=== PATIENT | female | born 1990 | race Caucasian/White ===

== ENCOUNTER → 2018-12-29 15:17 | Outpatient (CLI) | payer MEDICAID, SELFPAY ==
[2018-12-29 16:13] LABS: Basophils # 0.1 K/mm3 (0-0.2); Basophils % 0.9 % (0.1-2.0); Eosinophils # 0.2 K/mm3 (0.0-0.4); Eosinophils % 2.6 % (0.1-12.0); Hematocrit 39.5 % (37.0-47.0); Hemoglobin 12.2 g/dL (12.2-16.2); Lymphocytes # 2.1 K/mm3 (0.7-4.5); Lymphocytes % 31.3 % (10-50); Mean Corpuscular Volume 80.7 fl (81-99); Mean Platelet Volume 8.3 fl (7.4-10.4); Monocytes # 0.4 K/mm3 (0.1-1.0); Monocytes % 5.6 % (1.7-9.3); Neutrophils # 4.1 K/mm3 (1.8-7.8); Neutrophils % 59.5 % (37.0-80.0); Platelet Count 447 K/mm3 (142-424); Red Blood Count 4.89 M/mm3 (4.20-5.40); Red Cell Distribution Width 14.7 % (11.5-17.5); White Blood Count 6.8 K/mm3 (4.8-10.8)
[2018-12-29 17:22] LABS: Alanine Aminotransferase 28 U/L (12-78); Albumin Level 4.7 gm/dL (3.4-5.0); Albumin/Globulin Ratio 1.2 (1.1-1.8); Alkaline Phosphatase 72 U/L (46-116); Anion Gap 16.2 mEq/L (5-15); Aspartate Amino Transferase 22 U/L (15-37); Bilirubin,Total 0.3 mg/dL (0.2-1.0); Blood Urea Nitrogen 6 mg/dL (7-18); Calcium 9.4 mg/dL (8.5-10.1); Carbon Dioxide 28 mmol/L (21.0-32.0); Chloride 100 mmol/L (98-107); Chol/HDL Ratio 5.2 (1-3.5); Cholesterol 248 mg/dL (140-200); Creatinine,Serum 0.73 mg/dL (0.55-1.02); Estimated Glomerular Filt Rate 95 ml/min (>60); GFR (African American) 115 ML/MIN (>60); Globulin 3.8 gm/dl (1.3-3.2); Glucose 102 mg/dL (74-106); HDL Cholesterol 48 mg/dL (29-89); LDL Cholesterol 166 mg/dL (0-130); Potassium 4.2 mmoL/L (3.5-5.1); Sodium 140 mmol/L (136-145); T4 (Thyroxine) 7.8 ug/dl (4.7-13.3); Thyroid Stimulating Hormone 5.52 uIU/ml (0.358-3.740); Total Protein,Serum 8.5 gm/dL (6.4-8.2); Triglycerides 169 mg/dL (30-200); VLDL Cholesterol 34 mg/dL (0-40)
[2018-12-31 11:45] LABS: Vitamin D 25 Hydroxy 23.4 ng/mL (30.0-100.0)
== END ==
PROVIDERS: Visit Provider Physician Assistant
DX: E03.9 Hypothyroidism, unspecified (principal); E55.9 Vitamin D deficiency, unspecified
CPT/HCPCS: 80053; 80061; 82652; 84436; 84443; 85025

== ENCOUNTER → 2020-01-24 14:44 | Outpatient (CLI) | payer MEDICAID, SELFPAY ==
[2020-01-24 14:56] LABS: Basophils # 0.1 K/mm3 (0-0.2); Basophils % 1.2 % (0.1-2.0); Eosinophils # 0.2 K/mm3 (0.0-0.4); Eosinophils % 2.3 % (0.1-12.0); Hematocrit 40.3 % (37.0-47.0); Hemoglobin 12.4 g/dL (12.2-16.2); Lymphocytes # 2.5 K/mm3 (0.7-4.5); Lymphocytes % 35.3 % (10-50); Mean Corpuscular HGB Conc 30.8 g/dL (31.8-35.4); Mean Corpuscular Hemoglobin 25.1 pg (27.0-31.2); Mean Corpuscular Volume 81.8 fl (81-99); Mean Platelet Volume 8.2 fl (7.4-10.4); Monocytes # 0.4 K/mm3 (0.1-1.0); Monocytes % 5.9 % (1.7-9.3); Neutrophils # 3.9 K/mm3 (1.8-7.8); Neutrophils % 55.3 % (37.0-80.0); Platelet Count 397 K/mm3 (142-424); Red Blood Count 4.93 M/mm3 (4.20-5.40); Red Cell Distribution Width 13.6 % (11.5-17.5)
[2020-01-24 14:57] LABS: Chloride 101 mmol/L (98-107); Sodium 141 mmol/L (136-145)
[2020-01-24 14:59] LABS: Alanine Aminotransferase 20 U/L (12-78); Aspartate Amino Transferase 26 U/L (14-36); Blood Urea Nitrogen 8 mg/dl (7-17); Estimated Glomerular Filt Rate 99 ml/min (>60); GFR (African American) 120 ML/MIN (>60)
[2020-01-24 15:00] LABS: Albumin Level 4.7 g/dl (3.5-5.0); Albumin/Globulin Ratio 1.4 (1.1-1.8); Alkaline Phosphatase 63 U/L (38-126); Bilirubin,Total 0.3 mg/dl (0.2-1.3); Calcium 9.7 mg/dl (8.4-10.2); Carbon Dioxide 28 mmol/L (22.0-30.0); Cholesterol 252 mg/dl (140-200); Globulin 3.3 g/dL (1.3-3.2); Glucose 92 mg/dl (74-100); Triglycerides 367 mg/dl (30-150); VLDL Cholesterol 73 mg/dL (0-40)
[2020-01-24 15:01] LABS: Chol/HDL Ratio 5.3 (1-3.5); HDL Cholesterol 48 mg/dl (40-60)
[2020-01-24 15:11] LABS: Direct LDL Cholesterol 158.78 mg/dL (100-129)
[2020-01-24 15:22] LABS: 25-OH Vitamin D, Total 30.9 ng/mL (30-100)
[2020-01-24 15:31] LABS: Thyroid Stimulating Hormone 2.25 uIU/mL (0.465-4.68)
== END ==
PROVIDERS: Visit Provider Physician Assistant
DX: E03.9 Hypothyroidism, unspecified (principal); Z79.899 Other long term (current) drug therapy
CPT/HCPCS: 80053; 80061; 82306; 84436; 84443; 85025

== ENCOUNTER → 2021-07-15 16:00 | Outpatient (CLI) | payer MEDICAID, SELFPAY | PROVIDERS: Visit Provider Physician Assistant | DX: D50.9 Iron deficiency anemia, unspecified (principal) ==

== ENCOUNTER → 2021-07-15 16:08 | Outpatient (CLI) | payer MEDICAID, SELFPAY ==
--- NOTE | 2021-07-15 16:11 | XR_ITS ---
PROCEDURE INFORMATION: Exam: XR Left Foot Exam date and time: 07/15/2021 4:28 PM Age: 31 years old Clinical indication: Heel; Left; Patient HX: Pain when applying pressure; Additional info: Left heel pain TECHNIQUE: Imaging protocol: XR Left foot. Views: 3 or more views. COMPARISON: No relevant prior studies available. FINDINGS: Bones/joints: Normal. Soft tissues: Normal. IMPRESSION: No acute findings.
[2021-07-15 18:18] LABS: Basophils # 0.1 K/mm3 (0-0.2); Basophils % 1.2 % (0.1-2.0); Eosinophils # 0.1 K/mm3 (0.0-0.4); Eosinophils % 2.2 % (0.1-12.0); Hematocrit 32.5 % (37.0-47.0); Hemoglobin 10.4 g/dL (12.2-16.2); Lymphocytes # 2.1 K/mm3 (0.7-4.5); Lymphocytes % 34.4 % (10-50); Mean Corpuscular Hemoglobin 25.7 pg (27.0-31.2); Mean Corpuscular Volume 80.1 fl (81-99); Mean Platelet Volume 8.6 fl (7.4-10.4); Monocytes # 0.3 K/mm3 (0.1-1.0); Monocytes % 5.3 % (1.7-9.3); Neutrophils # 3.4 K/mm3 (1.8-7.8); Platelet Count 469 K/mm3 (142-424); Red Blood Count 4.06 M/mm3 (4.20-5.40); Red Cell Distribution Width 14.6 % (11.5-17.5)
[2021-07-15 19:52] LABS: Alanine Aminotransferase 16 U/L (12-78); Albumin Level 4.3 g/dl (3.5-5.0); Albumin/Globulin Ratio 1.7 (1.1-1.8); Alkaline Phosphatase 55 U/L (38-126); Anion Gap 11.2 mEq/L (5-15); Aspartate Amino Transferase 20 U/L (14-36); Bilirubin,Total 0.4 mg/dl (0.2-1.3); Blood Urea Nitrogen 5 mg/dl (7-17); Calcium 8.7 mg/dl (8.4-10.2); Carbon Dioxide 27 mmol/L (22.0-30.0); Chloride 103 mmol/L (98-107); Chol/HDL Ratio 4.8 (1-3.5); Cholesterol 211 mg/dl (140-200); Estimated Glomerular Filt Rate 117 ml/min (>60); GFR (African American) 141 ML/MIN (>60); Globulin 2.6 g/dL (1.3-3.2); Glucose 89 mg/dl (74-100); HDL Cholesterol 44 mg/dl (40-60); Potassium 4.2 mmoL/L (3.5-5.1); Sodium 137 mmol/L (136-145); Total Protein,Serum 6.9 g/dl (6.3-8.2); Triglycerides 161 mg/dl (30-150); VLDL Cholesterol 32 mg/dL (0-40)
[2021-07-15 20:04] LABS: Direct LDL Cholesterol 123.36 mg/dL (100-129)
[2021-07-15 20:11] LABS: 25-OH Vitamin D, Total 21.3 ng/mL (30-100)
[2021-07-15 20:24] LABS: Thyroid Stimulating Hormone 2.14 uIU/mL (0.465-4.68)
[2021-07-16 09:56] LABS: Iron 40 ug/dL (37-170)
[2021-07-16 10:04] LABS: Total Iron Binding Capacity 462 ug/dL (265-497)
[2021-07-16 10:32] LABS: Ferritin 5.42 ng/ml (6.24-137)
== END ==
PROVIDERS: PCP Physician Assistant; Visit Provider Physician Assistant
DX: M79.672 Pain in left foot (principal); E03.9 Hypothyroidism, unspecified; D50.9 Iron deficiency anemia, unspecified; E55.9 Vitamin D deficiency, unspecified
CPT/HCPCS: 73630; 80053; 80061; 82306; 82728; 83540; 83550; 84443; 85025

== ENCOUNTER 2022-01-14 19:57 | Emergency (ER) | payer MEDICAID, SELFPAY ==
[2022-01-14 19:57] VITALS: BP 136/62; PULSE 72; RESP 16; TEMP 37.2; O2SAT 99; BMI 41.9
--- NOTE | 2022-01-14 20:21 | XR_ITS ---
PROCEDURE INFORMATION: Exam: XR Right Ankle Exam date and time: 01/14/2022 8:24 PM Age: 31 years old Clinical indication: Injury or trauma; Fall; Blunt trauma; Ankle; Right TECHNIQUE: Imaging protocol: Radiologic exam of the Right ankle. Views: 3 or more views. COMPARISON: No relevant prior studies available. FINDINGS: Bones/joints: No acute fracture. No dislocation. No significant joint effusion. Soft tissues: Soft tissue swelling. IMPRESSION: No fracture. If pain persists, suggest splinting and follow up radiographs in 7-10 days.
--- NOTE | 2022-01-14 20:21 | XR_ITS ---
PROCEDURE INFORMATION: Exam: XR Right Tibia and Fibula Exam date and time: 01/14/2022 8:24 PM Age: 31 years old Clinical indication: Injury or trauma; Fall; Blunt trauma; Lower leg; Right TECHNIQUE: Imaging protocol: Radiologic exam of the Right tibia and fibula. Views: 2 views. COMPARISON: No relevant prior studies available. FINDINGS: Bones/joints: No acute fracture. No dislocation. Soft tissues: Soft tissue swelling about ankle. IMPRESSION: No fracture.
--- NOTE | 2022-01-14 21:29 | HMH.EDLOEX ---
Discharge Plan Disposition Patient Disposition: Home, Self-Care Chief Complaint: Extremity Injury, Lower Prescriptions Prescriptions: No Action fluoxetine 40 mg capsule 40 mg PO DAILY Rx Instructions: TAKE 1 CAPSULE BY MOUTH DAILY levothyroxine 50 mcg tablet 50 mcg PO DAILY Rx Instructions: TAKE 1 TABLET BY MOUTH EVERY MORNING ON AN EMPTY STOMACH Referrals Follow up/Referrals: Jessica Lopez DPM [Staff Physician] - See instructions Clinical Impressions Clinical Impression: Ankle sprain and strain Instructions Patient Instructions: Sprain Discharge ED Provider: Marshal Ko Lower Extremity Injury HPI General Chief Complaint: Extremity Injury, Lower Stated Complaint: right ankle injury Time Seen by Provider: 01/14/22 20:00 Mode of Arrival: EMS Source of Information: Patient, Spouse and Medical Record Limitations: No Limitations Description of Symptoms (Recalled from ER Triage Doc. by RN): Patient states that roughly one hour ago she was stepping off of her back porch when she stepped into a hole with her right foot and rolled her ankle, reports she felt and heard a popping sound and is since having excruciating pain up the outside of her right ankle and up to her right knee. History of Present Illness HPI Narrative: acute injury to rt ankle and rt lower leg as stepped off porch -pt with swelling and pain with wt bearing MD complaint: leg injury and ankle injury Onset (ago): hour(s) Injury: Right: ankle Type of Injury: eversion Place: home Severity: moderate Exacerbating factors: weight bearing and movement Associated symptoms: snap/pop sensation and unable to bear weight Other symptoms: none Related Data Home Medications Medication Instructions Recorded Confirmed fluoxetine 40 mg capsule 40 mg PO DAILY Depression 01/14/22 01/14/22 levothyroxine 50 mcg tablet 50 mcg PO DAILY hypothyroidism 01/14/22 01/14/22 Allergies Allergy/AdvReac Type Severity Reaction Status Date / Time No Known Drug Allergies Allergy Unknown Verified 01/09/22 08:59 [facility] Medical History (Updated 01/14/22 @ 21:40 by Marshal Ko MD) Anxiety Hypothyroidism Iron deficiency anemia Restless legs syndrome RLS (restless legs syndrome) Vitamin D deficiency Surgical History (Updated 01/14/22 @ 20:05 by Katarina Leonardo RN) History of cholecystectomy Social History Smoking Status: Current every day smoker alcohol intake: never substance use type: denies use current occupational status: unemployed Travel in the last 8 weeks: None ROS Obtained: Yes All systems reviewed & no additional complaints except as documented Physical Exam General General appearance: alert Head Head exam: normocephalic Eye Eye exam: Present PERRL and EOMI ENT ENT exam: Present mucous membranes moist Neck Neck exam: Present trachea midline Respiratory Respiratory exam: Absent respiratory distress Cardiovascular Cardiovascular exam: Present regular rate Abdominal Exam Abdominal exam: Present soft Expanded Lower Extremity Exam Right: Hip/Pelvis exam: Present pelvis stable Lower leg exam: Present tenderness and other (no compartment syndrome ); Absent full ROM Ankle exam: Present tenderness and swelling; Absent full ROM Foot/toe exam: Present normal inspection Neurological Exam Neurological exam: Present alert, oriented X3 and CN II-XII intact Psychiatric Psychiatric exam: Present normal affect Skin Skin exam: Present intact Medical Decision Making Medical Records Medical records reviewed: Yes I reviewed the patient's medical records. Mau Inquiry Pt receiving controlled substance: No Vital Signs: 01/14/22 19:57 Temperature 98.9 F Temperature Source Oral Pulse Rate [Apical] 72 Respiratory Rate 16 Blood Pressure [Right Arm] 136/62 Blood Pressure Mean [Right Arm] 86 Blood Pressure Source [Right Arm]
[2022-01-14 21:45] VITALS: BP 131/80; PULSE 87; RESP 20; TEMP 36.9; O2SAT 97
== END 2022-01-14 21:57 | disposition home or self-care (01) ==
PROVIDERS: Emergency Provider Emergency Medicine; PCP Physician Assistant
DX: S93.401A Sprain of unspecified ligament of right ankle, initial encounter (principal); W18.42XA Slipping, tripping and stumbling without falling due to stepping into hole or opening, initial encounter; Z79.899 Other long term (current) drug therapy; F41.9 Anxiety disorder, unspecified; E03.9 Hypothyroidism, unspecified; D50.9 Iron deficiency anemia, unspecified; G25.81 Restless legs syndrome; E55.9 Vitamin D deficiency, unspecified
CPT/HCPCS: 73590; 73610; 99283

== ENCOUNTER → 2022-02-05 11:09 | Outpatient (CLI) | payer MEDICAID, SELFPAY | PROVIDERS: PCP Physician Assistant; Visit Provider Podiatrist | DX: M25.571 Pain in right ankle and joints of right foot (principal) ==

== ENCOUNTER → 2022-03-13 13:19 | Outpatient (CLI) | payer MEDICAID, SELFPAY ==
--- NOTE | 2022-03-13 13:23 | MR_ITS ---
FINAL REPORT CLINICAL HISTORY: PAIN IN RIGHT ANKLE. fell 1 months ago and heard a pop in ankle. redness and swelling in ankle. entire ankle pain. states knot and put marker on knot. FINDINGS: Multiplanar MR imaging of the right ankle was performed without contrast. The bony structures are intact without evidence of fracture. There is mild abnormal signal at the insertion of the Achilles tendon, may be related to minimal partial insertional tear. There is air is moderate subcutaneous soft tissue edema about the ankle. There is marrow edema in the medial aspect of the talus. The anterior talofibular ligament is not visualized consistent with rupture. Finding is well seen on image 41 of series 10. Small joint effusion is identified. There is retrocalcaneal bursitis. IMPRESSION: Subacute inversion injury with anterior talofibular ligament rupture. Moderate subcutaneous soft tissue edema Reviewed, Interpreted and Dictated by Jori Amor MD Transcribed by Lucretia Golden Authenticated and [facility]
== END ==
PROVIDERS: PCP Physician Assistant; Visit Provider Nurse Practitioner
DX: M25.571 Pain in right ankle and joints of right foot (principal)
CPT/HCPCS: 73721

== ENCOUNTER 2022-11-08 22:32 | Emergency (ER) | payer MEDICAID, SELFPAY ==
[2022-11-08 22:40] VITALS: BP 133/72; PULSE 65; RESP 16; TEMP 36.8; O2SAT 100; BMI 41.5
--- NOTE | 2022-11-08 22:40 | PC.NURSE ---
Dr. Sargent at BS
--- NOTE | 2022-11-08 22:48 | HMH.EDGENADL ---
Discharge Plan Disposition Patient Disposition: Home, Self-Care Prescriptions Prescriptions: New ibuprofen 800 mg tablet 800 mg PO TID PRN (Reason: pain) 7 Days Qty: 20 0RF cyclobenzaprine 5 mg tablet 5 mg PO TID PRN (Reason: muscle spasm) 5 Days Qty: 15 0RF No Action gabapentin 600 mg tablet 600 mg PO ibuprofen 800 mg tablet 800 mg PO BID Qty: 60 1RF oxycodone-acetaminophen 7.5-325 mg tablet 1 tab PO Q4-6H PRN (Reason: pain) Qty: 30 0RF fluoxetine 40 mg capsule 40 mg PO DAILY Rx Instructions: TAKE 1 CAPSULE BY MOUTH DAILY levothyroxine 50 mcg tablet 50 mcg PO DAILY Rx Instructions: TAKE 1 TABLET BY MOUTH EVERY MORNING ON AN EMPTY STOMACH Referrals Follow up/Referrals: Charlotte Munoz APRN [Primary Care Provider] - See instructions Activity Restrictions/Add. Instructions Additional Instructions/Restrictions: Your symptoms today are not consistent with pharyngitis specifically strep pharyngitis or any other infectious etiology. They are most consistent with localized musculoskeletal strain of the cervical aspects of multiple muscles in the left lateral aspect of your neck and your trapezius muscle. Please take 80 mg of ibuprofen and your Flexeril which is a muscle relaxer as needed. Expect some sedation with the Flexeril to be careful with driving. Return with any worsening symptoms. Clinical Impressions Clinical Impression: Strain of cervical portion of left trapezius muscle Discharge ED Provider: Rad Sargent General Adult HPI General Chief complaint: Ear Stated complaint: pain in neck, sore throat Time Seen by Provider: 11/08/22 22:35 Mode of Arrival: Ambulatory Source of Information: Patient Limitations: No Limitations Description of Symptoms (Recalled from ER Triage Doc. by RN): pt states she started having a L ear ache, L outer throat pain and a sore throat yesterday evening. pt states the pain is now radiated to her L shoulder. pt denies any injury. History of Present Illness HPI narrative: Patient is a 32-year-old female here with left lateral neck pain. She states that she has pain just inferior to her left ear down the left side of her neck and around her left trapezius region. 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 Since that time she had significant pain in the left lateral aspect of her neck. She has no upper extremity paresthesias or weakness. No strokelike symptoms. No throat pain no fevers or chills or any other infectious etiologies. She states that she was googling her symptoms and she was worried about an arterial clot in her neck. Related Data Home Medications Medication Instructions Recorded Confirmed fluoxetine 40 mg capsule 40 mg PO DAILY Depression 01/14/22 02/05/22 levothyroxine 50 mcg tablet 50 mcg PO DAILY hypothyroidism 01/14/22 02/05/22 gabapentin 600 mg tablet 600 mg PO 01/15/22 02/05/22 Previous Rx's Medication Instructions Recorded ibuprofen 800 mg tablet 800 mg PO BID pain, mild #60 tabs 01/15/22 oxycodone-acetaminophen 7.5 mg-325 1 tab PO Q4-6H PRN pain #30 tabs 01/15/22 mg tablet cyclobenzaprine 5 mg tablet 5 mg PO TID PRN muscle spasm 5 11/08/22 days #15 tabs ibuprofen 800 mg tablet 800 mg PO TID PRN pain 7 days #20 11/08/22 tabs Allergies Allergy/AdvReac Type Severity Reaction Status Date / Time No Known Drug Allergies Allergy Unknown Verified 11/08/22 22:45 [facility] Disclaimer: The information contained in this section may have been updated after the patient was seen, as this information can be updated by other users. Medical History Anxiety Hypothyroidism Iron deficiency anemia Restless legs syndrome RLS (restless legs syndrome) Vitamin D deficiency Surgical History History of cholecystectomy Social History (Reviewe
[2022-11-08 22:52] VITALS: BP 133/72; PULSE 65; RESP 16; TEMP 36.9
== END 2022-11-08 22:58 | disposition home or self-care (01) ==
PROVIDERS: Emergency Provider Student in an Organized Health Care Education/Training Program; PCP Nurse Practitioner
DX: S46.812A Strain of other muscles, fascia and tendons at shoulder and upper arm level, left arm, initial encounter (principal); H92.02 Otalgia, left ear; J02.9 Acute pharyngitis, unspecified; X50.0XXA Overexertion from strenuous movement or load, initial encounter; F41.9 Anxiety disorder, unspecified; E03.9 Hypothyroidism, unspecified
CPT/HCPCS: 99283

== ENCOUNTER 2023-07-15 16:40 | Outpatient (CLI) | payer MEDICAID, SELFPAY ==
[2023-07-15 16:44] LABS: Basophils # 0.1 K/mm3 (0-0.2); Basophils % 1.5 % (0.1-2.0); Eosinophils # 0.1 K/mm3 (0.0-0.4); Eosinophils % 1.6 % (0.1-12.0); Hematocrit 31.9 % (37.0-47.0); Hemoglobin 10.3 g/dL (12.2-16.2); Lymphocytes # 1.6 K/mm3 (0.7-4.5); Lymphocytes % 27.9 % (10-50); Mean Corpuscular HGB Conc 32.4 g/dL (31.8-35.4); Mean Corpuscular Hemoglobin 25.1 pg (27.0-31.2); Mean Corpuscular Volume 77.3 fl (81-99); Mean Platelet Volume 8.6 fl (7.4-10.4); Monocytes # 0.3 K/mm3 (0.1-1.0); Monocytes % 5.9 % (1.7-9.3); Neutrophils # 3.6 K/mm3 (1.8-7.8); Neutrophils % 63.2 % (37.0-80.0); Platelet Count 391 K/mm3 (142-424); Red Blood Count 4.12 M/mm3 (4.20-5.40); Red Cell Distribution Width 15.2 % (11.5-17.5); White Blood Count 5.7 K/mm3 (4.8-10.8)
[2023-07-15 17:17] LABS: Thyroid Stimulating Hormone 2.41 uIU/mL (0.465-4.68)
[2023-07-16 13:24] LABS: FSH 5.7 mIU/mL (.)
== END 2023-07-15 23:59 ==
LOC: LAB.DROPOF 16:41
PROVIDERS: PCP Family Medicine; Visit Provider Family Medicine
DX: R30.0 Dysuria (principal); E03.9 Hypothyroidism, unspecified; N92.0 Excessive and frequent menstruation with regular cycle; D64.9 Anemia, unspecified; B96.89 Other specified bacterial agents as the cause of diseases classified elsewhere
CPT/HCPCS: 83001; 84443; 85025; 87086

== ENCOUNTER 2023-08-20 18:00 | Outpatient (CLI) | payer MEDICAID, SELFPAY | END 2023-08-20 23:59 | disposition home or self-care (01) | LOC: LAB.DROPOF 08-24 08:25 | PROVIDERS: PCP Family Medicine; Visit Provider Family Medicine | DX: R10.2 Pelvic and perineal pain (principal); B96.89 Other specified bacterial agents as the cause of diseases classified elsewhere | CPT/HCPCS: 87086 ==

== ENCOUNTER 2023-09-14 16:18 | Outpatient (CLI) | payer MEDICAID, SELFPAY ==
[2023-09-22 13:51] LABS: Atopobium vaginae Low - 0 Score (.); BVAB2 Low - 0 Score (.); Candida albicans NAA Negative (Negative); Candida glabrata Negative (Negative); Chlamydia Trachomatis NAA Negative (Negative); HSV 1 NAA Negative (Negative); HSV 2 NAA Negative (Negative); Megasphaera 1 Low - 0 Score (.); Neisseria gonorrhoeae NAA Negative (Negative); Trich vag NAA Negative (Negative)
== END 2023-09-14 23:59 | disposition home or self-care (01) ==
LOC: LAB.DROPOF 16:18
PROVIDERS: PCP Urology; Visit Provider Urology
DX: N76.0 Acute vaginitis (principal); N32.81 Overactive bladder; N39.0 Urinary tract infection, site not specified; R10.9 Unspecified abdominal pain
CPT/HCPCS: 87086; 87491; 87529; 87563; 87591; 87661; 87798; 87801

== ENCOUNTER 2023-09-15 10:15 | Outpatient (CLI) | payer MEDICAID, SELFPAY ==
[2023-09-15 11:11] LABS: Blood Urea Nitrogen 6 mg/dl (7-17); Estimated Glomerular Filt Rate 96 ml/min (>60); GFR (African American) 117 ML/MIN (>60)
== END 2023-09-15 23:59 | disposition home or self-care (01) ==
LOC: LAB 10:17
PROVIDERS: PCP Family Medicine; Visit Provider Urology
DX: N76.0 Acute vaginitis (principal); N32.81 Overactive bladder; N39.0 Urinary tract infection, site not specified
CPT/HCPCS: 36415; 82565; 84520

== ENCOUNTER 2023-10-01 09:38 | Outpatient (CLI) | payer MEDICAID, SELFPAY ==
--- NOTE | 2023-10-01 09:39 | CT_ITS ---
FINAL REPORT TECHNIQUE: Axial CT images of the abdomen and pelvis were obtained before and after the administration of IV contrast. This study was performed with techniques to keep radiation doses as low as reasonably achievable (ALARA). Individualized dose reduction techniques using automated exposure control or adjustment of mA and/or kV according to the patient''s size were employed. CLINICAL HISTORY: UTI COMPARISON: None FINDINGS: Abdomen: Mild atelectasis is present in the lung bases bilaterally. The heart is normal in size. The liver has an unremarkable appearance, without evidence of mass or biliary duct dilatation. The gallbladder has been surgically resected.. The spleen is unremarkable. No adrenal masses present. The pancreas has an unremarkable appearance. No evidence of renal stones or hydronephrosis is present. The aorta is normal in caliber. There is no free fluid or adenopathy. There is a small umbilical hernia present with fat. Precontrast images demonstrate no evidence of nephrolithiasis. Pelvis: The appendix is not well visualized. There is nonspecific mild bladder wall thickening, that may represent inflammatory change. A small amount of pelvic free fluid is identified, physiologic versus reactive. There is no evidence of mass or adenopathy. There is no evidence of bowel obstruction. IMPRESSION: Small amount of pelvic free fluid, physiologic versus reactive. Mild nonspecific bladder wall thickening, which may be physiologic or inflammatory in nature. Reviewed, Interpreted and Dictated by Gurvinder Koroma III, MD Transcribed by Sirena Dsouza Authenticated and [facility]
[2023-10-01 10:18] LABS: Urine Pregnancy, HCG Qual. Negative (Negative)
[2023-10-01] MEDS: SODIUM CHLORIDE 0.9% 10ML SYR (RAD ONLY) 10 ML IV (10:49)
[2023-10-01] MEDS: IOPAMIDOL-370 (76%);100ML BOTTLE 75 ML IV (10:49)
== END 2023-10-01 23:59 | disposition home or self-care (01) ==
LOC: RAD 09:39
PROVIDERS: PCP Family Medicine; Visit Provider Urology
DX: N76.0 Acute vaginitis (principal); N32.81 Overactive bladder; N39.0 Urinary tract infection, site not specified
CPT/HCPCS: 74178; 81025; Q9967

== ENCOUNTER 2023-10-16 09:16 | Day surgery (SDC) | payer MEDICAID, SELFPAY ==
[2023-10-16 09:27] VITALS: BMI 37.8
[2023-10-16 09:31] VITALS: BP 128/67; PULSE 80; RESP 18; TEMP 36.4; O2SAT 99
[2023-10-16 09:40] LABS: Urine Pregnancy, HCG Qual. Negative (Negative)
[2023-10-16] MEDS: LIDOCAINE 2% UROJET 10ML 10 ML (10:15)
[2023-10-16] MEDS: LACTATED RINGERS 1000ML 1,000 ML 50 ML IV (10:15)
--- NOTE | 2023-10-16 10:16 | P.PCN_ITS ---
[facility] Procedure Note Date: 10/16/23 Time: 10:16 Procedure Note:: Preop diagnosis: Overactive bladder/thickened bladder wall Postop diagnosis: Overactive bladder Procedure: The patient was brought to the cystoscopy treatment room. She is prepped and draped in the standard fashion. She underwent flexible cystoscopy. Her urethra shows minimal urethritis. The bladder itself is [place] pink in color throughout without evidence of bladder stone tumor hemorrhage or infection. She has good estrogen nation of the external genitalia. The patient's bladder capacity however is reduced to about 175 cc. She has a strong feeling of urgency and needing to void at that point. She tolerated the procedure well. Is whe is refractory to oral medicaiton, she may become a BOTOX cnadidate.
[2023-10-16 10:18] VITALS: BP 141/87; PULSE 62; RESP 18; TEMP 36.9; O2SAT 100
[2023-10-16 10:29] VITALS: BP 141/87; PULSE 62; RESP 18; TEMP 36.9; O2SAT 100
== END 2023-10-16 10:29 | disposition home or self-care (01) ==
PROVIDERS: PCP Family Medicine; Visit Provider Urology
PROC: 0TJB8ZZ Inspection of Bladder, Via Natural or Artificial Opening Endoscopic (ICD-10-PCS; CPT 52000; principal; 2023-10-16 10:45)
DX: N32.81 Overactive bladder (principal); N34.2 Other urethritis; N32.89 Other specified disorders of bladder
CPT/HCPCS: 52000; 81025; J7120

== ENCOUNTER 2024-01-07 10:33 | Outpatient (CLI) | payer MEDICAID, SELFPAY ==
[2024-01-07 16:27] LABS: Coronavirus 19, PCR Not Detected (NotDetected); Influenza A, PCR Not Detected (NotDetected); Influenza B, PCR Not Detected (NotDetected)
== END 2024-01-07 23:59 | disposition home or self-care (01) ==
LOC: LAB.DROPOF 01-08 12:30
PROVIDERS: PCP Nurse Practitioner Family; Visit Provider Nurse Practitioner Family
DX: R05.9 Cough, unspecified (principal)
CPT/HCPCS: 87636

== ENCOUNTER 2024-03-29 08:39 | Outpatient (CLI) | payer MEDICAID, SELFPAY | END 2024-03-29 23:59 | disposition home or self-care (01) | LOC: LAB.DROPOF 03-30 08:40 | PROVIDERS: PCP Family Medicine; Visit Provider Family Medicine | DX: N39.0 Urinary tract infection, site not specified (principal) | CPT/HCPCS: 87086 ==

== ENCOUNTER 2024-04-12 17:20 | Emergency (ER) | payer MEDICAID, SELFPAY ==
[2024-04-12 17:21] VITALS: BP 123/72; PULSE 74; RESP 16; TEMP 36.4; O2SAT 100; BMI 37.5
[2024-04-12 17:30] VITALS: BP 112/72; PULSE 82; O2SAT 100
[2024-04-12 17:38] LABS: Microscopic, Urine URINE MICROSCOPIC (MICROSCOPIC)
--- NOTE | 2024-04-12 17:39 | PC.NURSE ---
DR NOLASCO AT BEDSIDE
[2024-04-12 17:47] LABS: Appearance,Urine CLEAR (Clear); Bilirubin,Urine Negative (Negative); Blood, Urine 3+ (Negative); Color,Urine YELLOW (Yellow); Glucose,Urine (UA) Negative (Negative); Ketones,Urine Negative (Negative); Leukocyte Esterase,Urine 1+ (Negative); Nitrate,Urine Negative (Negative); PH,Urine 6.5 (5.0-8.5); Protein,Urine Negative (Negative)
[2024-04-12 17:54] LABS: Albumin Level 4.4 g/dl (3.5-5.0); Chloride 105 mmol/L (98-107); Potassium 3.4 mmoL/L (3.5-5.1); Sodium 137 mmol/L (136-145)
[2024-04-12 17:56] LABS: Alanine Aminotransferase 35 U/L (12-78); Alkaline Phosphatase 53 U/L (38-126); Anion Gap 6.4 mEq/L (5-15); Aspartate Amino Transferase 39 U/L (14-36); Bilirubin,Total 0.3 mg/dl (0.2-1.3); Blood Urea Nitrogen 8 mg/dl (7-17); Carbon Dioxide 29 mmol/L (22.0-30.0); Creatinine Clearance Estimated 138 mL/min (50-200); Estimated Glomerular Filt Rate 72 ml/min (>60); GFR (African American) 87 ML/MIN (>60)
[2024-04-12 17:57] LABS: Albumin/Globulin Ratio 1.6 (1.1-1.8); Calcium 8.8 mg/dl (8.4-10.2); Globulin 2.8 g/dL (1.3-3.2); Glucose 89 mg/dl (74-100); Lipase 503 U/L (23-300); Total Protein,Serum 7.2 g/dl (6.3-8.2)
[2024-04-12 18:00] VITALS: BP 110/71; PULSE 67; O2SAT 100
[2024-04-12 18:04] LABS: RBC,Urine TNTC #/hpf (0-3)
[2024-04-12] MEDS: ACETAMINOPHEN 500MG TAB 1000 MG PO (18:04)
--- NOTE | 2024-04-12 18:04 | HMH.EDGENADL ---
Discharge Plan Disposition Patient Disposition: Home, Self-Care Prescriptions Prescriptions: No Action sulfamethoxazole-trimethoprim 800-160 mg tablet 1 tab PO BID Qty: 30 0RF gabapentin 600 mg tablet 600 mg PO QID Qty: 120 5RF Referrals Follow up/Referrals: Karissa Solares DO [Staff Physician] - See instructions Reginald Harris MD [Primary Care Provider] - See instructions Activity Restrictions/Add. Instructions Additional Instructions/Restrictions: Follow-up with [facility]IC[facility]ESSION[facility] to consolidate treatment including oral contraceptive pills to control heavy periods as well as iron infusions in order to bring up your blood counts. Call your family doctor to establish care for this visit to the emergency department and schedule follow-up within 48 hours to ensure improvement. If you have any worsening of your condition or any other concerning signs or symptoms, return to the emergency department or your primary care doctor for further evaluation. Clinical Impressions Clinical Impression: Abdominal pain, Blood loss anemia Instructions Patient Instructions: DI for Acute Abdominal Pain Print Language Print Language: Russian Discharge ED Provider: Arpit Styles General Adult HPI General Chief complaint: Abdominal Pain Stated complaint: left side pain,abdominal pain Time Seen by Provider: 04/12/24 17:38 Mode of Arrival: Ambulatory Source of Information: Patient Limitations: No Limitations Description of Symptoms (Recalled from ER Triage Doc. by RN): PT C/O LLQ ABDOMINAL PAIN AND SWELLING THAT STARTED AFTER LUNCH TODAY. PERIOD STARTED TODAY History of Present Illness HPI narrative: Please note that above description of symptoms, in this electronic medical record under categorization of recalled from ER triage doctor by RN are reflective of an initial nursing assessment, however, is not reflective of my full history and physical exam that was personally taken and clarified. Consequentially, this preceding description of symptoms, which may include the patient's categorized chief complaint in the EMR, do not reflect my personal clinical impression, and the ultimate description of history of present illness and patient stated complaints should be deferred to this section of the note. Unless stated otherwise or congruent with this section of the note, additional signs, symptoms, or incongruence should be interpreted as inaccurate with my clinical impression. Related Data Previous Rx's ?Medication ?Instructions ?Recorded gabapentin 600 mg tablet 600 mg PO QID #120 tabs 03/01/24 sulfamethoxazole 800 1 tab PO BID #30 tabs 03/29/24 mg-trimethoprim 160 mg tablet Allergies Allergy/AdvReac Type Severity Reaction Status Date / Time nitrofurantoin Allergy Intermediate Hives Verified 03/29/24 11:01 [facility] Disclaimer: The information contained in this section may have been updated after the patient was seen, as this information can be updated by other users. Medical History Urinary tract infection History of COVID-19 Edema Bleeding after intercourse History of endometriosis PCOS (polycystic ovarian syndrome) Dyspareunia in female Dysmenorrhea Pelvic pain Abnormal uterine bleeding Heavy menstrual bleeding Vitamin D deficiency Iron deficiency anemia RLS (restless legs syndrome) Restless legs syndrome Anxiety Hypothyroidism Surgical History History of cholecystectomy Family History Grandmother Heart attack Hypertension Stroke Grandfather Hypertension Stroke Social History Smoking Status: Current every day smoker alcohol intake: never substance use type: denies use current occupational status: employed Travel in the last 8 weeks: None current occupation: [employer] ([employer]) caffeine: Yes Have you lived/traveled outside [place] in past 30 days?: No Contact w/someone who lives/traveled outside [place] past 30 days?: No Exposure to someone with infectious disease in past 14 days?: No Do you have a fever (greater than 100.4 F or 38 C)?: No Have you tested positive for COVID-19: No Exposed to someone with COVID-19 in past 14 days?: No Do you have a sore throat?: No Do you have a cough?: No Do you have any weakness?: No Do you have any diarrhea?: No Are you experiencing any unusual bleeding?: No Do you have any muscle aches/pain?: No Do you have any abdominal pain?: Yes Are you experiencing loss of taste or smell?: No Other Medical History Have you received the Pneumonia Vaccine: No ROS Obtained: Yes All systems reviewed & no additional complaints except as documented Physical Exam General General appearance: alert, in no apparent distress and obese Head Head exam: atraumatic and normocephalic Eye Eye exam: Present normal appearance, PERRL and EOMI Neck Neck exam: Present normal inspection, full ROM and trachea midline Respiratory Respiratory exam: Present normal lung sounds bilaterally; Absent respiratory distress, wheezes, stridor, accessory muscle use or prolonged expiratory phase Cardiovascular Cardiovascular exam: Present regular rate, normal rhythm and other (Pulses equal symmetric in upper and lower extremities) Abdominal Exam Abdominal exam: Present soft and tenderness; Absent distention, guarding, rebound, rigidity or pulsatile mass Abdominal tenderness: Present mild (Left lateral abdominal wall) Extremities Exam Extremities exam: Absent edema Neurological Exam Neurological exam: Present alert, oriented X3 and CN II-XII intact; Absent motor sensory deficit Skin Skin exam: Present warm and dry; Absent diaphoresis or erythema Medical Decision Making Medical Records Medical records reviewed: Yes I reviewed the patient's medical records. Screening: Per USPSTF and CDC recommendations, given the prevalence of disease in our region, it is our hospital?s policy to screen for HIV and viral Hepatitis for all patients aged 18 and over and those with ongoing risk factors. Mau Inquiry Pt receiving controlled substance: No Mau was queried for this patient: No Vital Signs: 04/12/24 17:21 04/12/24 17:30 04/12/24 18:00 Temperature 97.5 F L Temperature Source Oral Pulse Rate 82 67 Pulse Rate [Radial] 74 Respiratory Rate 16 Blood Pressure 112/72 110/71 Blood Pressure [Right Arm] 123/72 Blood Pressure Mean [Right Arm] 89 Blood Pressure Source [Right Arm] Automatic Cuff Blood Pressure Position [Right Arm] Sitting 02 Sat by Pulse Oximetry 100 100 100 Oxygen Delivery Method Room Air Room Air Room Air Lab Data Lab Results 04/12/24 17:25: Urine Color Yellow, Urine Appearance Clear, Urine pH 6.5, Ur Specific [place] 1.020, Urine Protein Negative, Urine Glucose (UA) Negative, Urine Ketones Negative, Urine Blood 3+ A, Urine Nitrate Negative, Urine Bilirubin Negative, Urine Urobilinogen 1.0, Ur Leukocyte Esterase 1+ A, Urine RBC Tntc, Urine WBC 10-20, Ur Squamous Epith Cells 10-20, Urine Bacteria 1+, Urine Mucus 1+ 04/12/24 17:30: WBC 7.1, RBC 4.05 L, Hgb 8.8 L, Hct 29.9 L, MCV 73.8 L, MCH 21.7 L, MCHC 29.4 L, RDW 15.1, Plt Count 420, MPV 10.3, Neut % (Auto) 55.1, Lymph % (Auto) 35.7, Jennings % (Auto) 5.9, Eos % (Auto) 1.8, Baso % (Auto) 1.4, Neut # (Auto) 3.9, Lymph # (Auto) 2.5, Jennings # (Auto) 0.4, Eos # (Auto) 0.1, Baso # (Auto) 0.1, Sodium 137, Potassium 3.4 L, Chloride 105, Carbon Dioxide 29, Anion Gap 6.4, BUN 8, Creatinine 0.90, Estimated Creat Clear 138, Estimated GFR 72, Est GFR ( Amer) 87, Glucose 89, Calcium 8.8, Total Bilirubin 0.3, AST 39 H, ALT 35, Alkaline Phosphatase 53, Total Protein 7.2, Albumin 4.4, Globulin 2.8, Albumin/Globulin Ratio 1.6, Lipase 503 H, Serum HCG, Qual Negative, HCG, Quant < 2, HIV Ag/Ab Combo Qual Negative 04/12/24 17:30 04/12/24 17:30 Orders (Tests/Meds): ED MEDICATIONS Discontinued Medications Generic Name Dose Route Start Last Admin Trade Name Freq PRN Reason Stop Dose Admin Acetaminophen 1,000 mg 04/12/24 17:44 04/12/24 18:04 Acetaminophen 500mg Tab PO 04/12/24 17:45 1,000 mg ONCE ONE Administration Cephalexin HCl 1,000 mg 04/12/24 18:20 04/12/24 18:29 Cephalexin 500mg Capsule PO 04/12/24 18:21 1,000 mg ONCE ONE Administration Iopamidol 75 ml 04/12/24 19:44 04/12/24 19:44 Iopamidol-370 (76%);100ml Bottle IV 04/12/24 19:45 75 ml ONCE ONE Administration Ketorolac Tromethamine 15 mg 04/12/24 18:20 04/12/24 18:29 Ketorolac 30mg/Ml Vial IV 04/12/24 18:21 15 mg ONCE ONE Administration Sodium Chloride 10 ml 04/12/24 19:44 04/12/24 19:44 Sodium Chloride 0.9% 10ml Syr (Rad Only) IV 04/12/24 19:45 10 ml ONCE ONE Administration ORDERS Category Date Time Status CT abdomen pelvis w con Stat Cat Scan 04/12/24 18:35 Completed Beta HCG, Qual [HCG Qualitative, Serum] Stat Lab 04/12/24 17:30 Completed CBC w/Auto Diff [Complete Blood Count Auto Diff] Stat Lab 04/12/24 17:30 Completed CMP [Comprehensive Metabolic Panel] Stat Lab 04/12/24 17:30 Completed Ferritin Stat Lab 04/12/24 17:30 Received HCG,Quantitative Stat Lab 04/12/24 17:30 Completed HIV Combo Stat Lab 04/12/24 17:30 Completed Hep C Ab with Reflex to RNA Stat Lab 04/12/24 17:30 Received Lipase Stat Lab 04/12/24 17:30 Completed UA [Urinalysis and Microscopic] Stat Lab 04/12/24 17:25 Completed Urine Culture Stat Micro 04/12/24 17: Received Medical Decision Narrative: This is a 34-year-old female with history of cholecystectomy presenting with abdominal pain. Patient states that around 12 PM today, 04/08, she started any abdominal pain left-sided that radiated into left upper quadrant and laterally/posteriorly. No overlying skin changes. Nausea without vomiting. No fevers or chills, weight loss, diaphoresis. Patient states that she had a normal bowel movement today, no bladder abnormalities. No urinary symptoms. 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 There is a chance that she may be . Pain intermittent, sharp, worse when she is walking, better when still. Never had anything like this in the past. History obtained the patient. On arrival, very well-appearing. Abdomen is soft, nondistended, nonperitoneal, but she does have superficial and deep tenderness to palpation that appears to be mild. Patient conversing through pain. No overlying skin changes. No flank tenderness. No midline spinal tenderness. Differential includes PUD, gastritis, enteritis, gastroenteritis, pancreatitis, SBO, colitis, diverticulitis, nephrolithiasis, UTI, , choledocholithiasis, appendicitis, hepatitis, torsion, aortic pathology, mesenteric ischemia among others. Patient given Tylenol initially until resulted. After test results negative, will be given other meds. Workup independently interpreted normal white blood cell count, hemoglobin low at 8.8. Chemistry nonactionable. hCG negative. Lipase mildly elevated 503. Urinalysis positive, patient was given 1 g Keflex for this. Extended conversation had with patient and significant other, ultimately, CT of the abdomen and pelvis was ordered for further evaluation of abdominal pain. Independent interpretation demonstrate no acute intra-abdominal abnormality. [facility]ESSIONAL was contacted and case was discussed regarding need for oral contraceptives, as well as iron infusions, recommended following up with them outpatient in order to initiate both of these treatments. I feel this is appropriate. Ferritin ordered for completeness sake. Because patient at baseline without signs or symptoms of clinical decompensation, deemed appropriate for discharge. Results were relayed to patient who voiced understanding and were agreeable to outpatient management and follow up. I discussed my clinical impression with patient and answered all questions. At this time, the evidence for any other entities in the differential is insufficient to warrant any further testing or ED observation. This was explained as well. Advisory was given that persistent or worsening symptoms require further evaluation. I confirmed the understanding of this discussion. [employer] disclaimer Much of this encounter note is an electronic materials management manager spoken language to printed text. Electronic materials management manager of the spoken language may permit errors. Although I have reviewed the note, some errors may still exist. Critical Care Critical Care Time Critical Care Time: No
[2024-04-12 18:05] LABS: Bacteria,Urine 1+ /lpf; Mucus,Urine 1+ /lpf
[2024-04-12 18:06] LABS: Hematocrit 29.9 % (37.0-47.0); Hemoglobin 8.8 g/dL (12.2-16.2); Mean Corpuscular HGB Conc 29.4 g/dL (31.8-35.4); Mean Corpuscular Hemoglobin 21.7 pg (27.0-31.2); Mean Corpuscular Volume 73.8 fl (81-99); Red Blood Count 4.05 M/mm3 (4.20-5.40); White Blood Count 7.1 K/mm3 (4.8-10.8)
[2024-04-12 18:07] LABS: Basophils # 0.1 K/mm3 (0-0.2); Basophils % 1.4 % (0.1-2.0); Eosinophils # 0.1 K/mm3 (0.0-0.4); Eosinophils % 1.8 % (0.1-12.0); Lymphocytes # 2.5 K/mm3 (0.7-4.5); Lymphocytes % 35.7 % (10-50); Mean Platelet Volume 10.3 fl (7.4-10.4); Monocytes # 0.4 K/mm3 (0.1-1.0); Monocytes % 5.9 % (1.7-9.3); Neutrophils # 3.9 K/mm3 (1.8-7.8); Neutrophils % 55.1 % (37.0-80.0); Platelet Count 420 K/mm3 (142-424); Red Cell Distribution Width 15.1 % (11.5-17.5)
[2024-04-12 18:14] LABS: HCG,Quantitative < 2 mIU/ml (0-5.42)
[2024-04-12] MEDS: KETOROLAC 30MG/ML VIAL 15 MG IV (18:29)
[2024-04-12] MEDS: cephALEXin 500MG CAPSULE 1000 MG PO (18:29)
--- NOTE | 2024-04-12 18:35 | CT_ITS ---
PROCEDURE INFORMATION: Exam: CT Abdomen And Pelvis With Contrast Exam date and time: 04/12/2024 7:37 PM Age: 34 years old Clinical indication: Other: Luq pain and anemia (acute on chronic); Additional info: Luq pain and anemia (acute on chronic) TECHNIQUE: Imaging protocol: Computed tomography of the abdomen and pelvis with contrast. Radiation optimization: All CT scans at this facility use at least one of these dose optimization techniques: automated exposure control; mA and/or kV adjustment per patient size (includes targeted exams where dose is matched to clinical indication); or iterative reconstruction. Contrast material: ISOVUE; Contrast volume: 75 ml; Contrast route: IV; COMPARISON: CT ABDOMEN PELVIS WO/W CON 10/01/2023 10:28 AM FINDINGS: Liver: Normal. No mass. Gallbladder and biliary ducts: Gallbladder is surgically absent. No significant biliary ductal dilation. Pancreas: Normal. No ductal dilation. Spleen: Normal. No splenomegaly. Adrenal glands: Normal. No mass. Kidneys and ureters: Normal. No hydronephrosis. Stomach and bowel: Moderate fecal retention throughout the colon. No bowel wall thickening or evidence of bowel obstruction. Appendix: The appendix is visualized and appears normal. Intraperitoneal space: Unremarkable. No free air. No significant fluid collection. Vasculature: Unremarkable. No abdominal aortic aneurysm. Lymph nodes: Unremarkable. No enlarged lymph nodes. Urinary bladder: Unremarkable as visualized. Reproductive: Unremarkable as visualized. Bones/joints: Significant disc space narrowing with moderate disc bulge at the lumbosacral junction. Bones are otherwise unremarkable. Soft tissues: Small fat containing umbilical hernia. IMPRESSION: 1. Moderate colonic constipation 2. Small umbilical hernia without bowel involvement 3. Moderate degenerative changes at the lumbosacral junction
--- NOTE | 2024-04-12 18:40 | PC.NURSE ---
DR NOLASCO AT BEDSIDE TO UPDATE PT
[2024-04-12 18:51] LABS: HCG Qualitative, Serum Negative (Negative)
[2024-04-12 19:38] LABS: HIV Combo NEGATIVE (Negative)
[2024-04-12] MEDS: IOPAMIDOL-370 (76%);100ML BOTTLE 75 ML IV (19:44)
[2024-04-12] MEDS: SODIUM CHLORIDE 0.9% 10ML SYR (RAD ONLY) 10 ML IV (19:44)
[2024-04-12 22:21] LABS: Ferritin 3.89 ng/ml (6.24-137)
[2024-04-12 22:35] VITALS: BP 108/69; PULSE 72; RESP 20; TEMP 36.8; O2SAT 100
[2024-04-14 06:23] LABS: HCV Ab Non Reactive (Non Reactive)
--- NOTE | 2024-04-15 11:21 | PC.NURSE ---
Shereen from [facility] called regarding this patient asking if we had sent over a different prescription for her; advised that Dr. Styles consulted with ARDEN Felix and she advised to not prescribe anything until she followed up with Dr. Solares in office.
== END 2024-04-12 22:39 | disposition home or self-care (01) ==
PROVIDERS: Emergency Provider Emergency Medicine; PCP Family Medicine
DX: D50.0 Iron deficiency anemia secondary to blood loss (chronic) (principal); R10.32 Left lower quadrant pain; R11.0 Nausea
CPT/HCPCS: 74177; 80053; 81001; 82728; 83690; 84702; 84703; 85025; 86803; 87086; 87389; 96374; 99285; J1885; Q9967

== ENCOUNTER 2024-05-25 09:38 | Outpatient (CLI) | payer MEDICAID, SELFPAY | END 2024-05-25 23:59 | disposition home or self-care (01) | LOC: LAB.DROPOF 05-26 09:38 | PROVIDERS: PCP Family Medicine; Visit Provider Family Medicine | DX: N39.0 Urinary tract infection, site not specified (principal) | CPT/HCPCS: 87086 ==

== ENCOUNTER 2024-06-01 09:38 | Outpatient (CLI) | payer MEDICAID, SELFPAY ==
[2024-06-01 09:52] LABS: Basophils # 0.1 K/mm3 (0-0.2); Basophils % 1.3 % (0.1-2.0); Eosinophils # 0.1 K/mm3 (0.0-0.4); Eosinophils % 0.9 % (0.1-12.0); Hematocrit 30.4 % (37.0-47.0); Lymphocytes # 1.8 K/mm3 (0.7-4.5); Lymphocytes % 32.6 % (10-50); Mean Corpuscular HGB Conc 29.6 g/dL (31.8-35.4); Mean Corpuscular Hemoglobin 21.3 pg (27.0-31.2); Mean Corpuscular Volume 71.9 fl (81-99); Mean Platelet Volume 10.1 fl (7.4-10.4); Monocytes # 0.3 K/mm3 (0.1-1.0); Monocytes % 6.2 % (1.7-9.3); Neutrophils # 3.2 K/mm3 (1.8-7.8); Neutrophils % 58.6 % (37.0-80.0); Platelet Count 419 K/mm3 (142-424); Red Blood Count 4.23 M/mm3 (4.20-5.40); White Blood Count 5.5 K/mm3 (4.8-10.8)
[2024-06-01 10:25] LABS: Alanine Aminotransferase 20 U/L (12-78); Albumin Level 4.6 g/dl (3.5-5.0); Alkaline Phosphatase 53 U/L (38-126); Aspartate Amino Transferase 25 U/L (14-36); Bilirubin,Total 0.4 mg/dl (0.2-1.3); Blood Urea Nitrogen 9 mg/dl (7-17); Calcium 9.1 mg/dl (8.4-10.2); Carbon Dioxide 27 mmol/L (22.0-30.0); Chloride 105 mmol/L (98-107); Estimated Glomerular Filt Rate 96 ml/min (>60); GFR (African American) 116 ML/MIN (>60); Globulin 2.3 g/dL (1.3-3.2); Glucose 87 mg/dl (74-100); Sodium 139 mmol/L (136-145); Total Protein,Serum 6.9 g/dl (6.3-8.2)
--- NOTE | 2024-06-01 10:47 | US_ITS ---
PROCEDURE: US TRANSVAGINAL CLINICAL INDICATION: Abnormal Bleeding COMPARISON: CT CT ABDOMEN PELVIS WO/W CON from 10/01/[address] ABDOMEN PELVIS W CON from 04/12/2024 FINDINGS: Transvaginal sonographic images of the pelvis were obtained. UTERUS: 7.6 cm x 6.1cmx 5.5cm retroflexed with a combined endometrial thickness of 18.4 mm. There is a 0.9 cm nabothian cyst in the cervix There is a small amount of fluid in the lower uterine segment and upper cervix. The myometrium is heterogenous. LEFT OVARY: [id number] with a volume of 7.4ml. There are multiple small peripheral follicles giving the ovary a polycystic appearance. RIGHT OVARY: 4cmx [id number] with a volume of 13.7ml. There are multiple small peripheral follicles giving the ovary a polycystic appearance. There is a small amount of fluid around the right ovary. There is a 1.7 cm X 1.7 cm x 1.7 cm corpus luteum in the right ovary. Both ovaries are seen and appear polycystic. Doppler flow to both ovaries are seen. There is a trace of fluid in the cul-de-sac. IMPRESSION: 1. Retroflexed uterus normal in shape and size. The endometrium is markedly thickened measuring 18.4 mm. There is a small amount of fluid in the lower uterine segment. 2. Suggest endometrial sampling. 3. The myometrium is heterogenous. 4. Both ovaries are seen and appear polycystic. 5. There is trace fluid in the cul-de-sac. Dictated by: Mor Madrigal MD 06/01/2024 11:44 Mor Madrigal MD in OV 06/01/2024 11:44
[2024-06-01 11:05] LABS: Thyroid Stimulating Hormone 2.41 uIU/mL (0.465-4.68)
== END 2024-06-01 23:59 | disposition home or self-care (01) ==
PROVIDERS: Obstetrics & Gynecology; PCP Family Medicine; Visit Provider Family Medicine
DX: D50.0 Iron deficiency anemia secondary to blood loss (chronic) (principal); N93.9 Abnormal uterine and vaginal bleeding, unspecified
CPT/HCPCS: 36415; 76830; 80053; 84443; 85025

== ENCOUNTER 2024-07-26 15:54 | Outpatient (CLI) | payer MEDICAID, SELFPAY | END 2024-07-26 23:59 | disposition home or self-care (01) | LOC: LAB.DROPOF 07-27 13:42 | PROVIDERS: PCP Family Medicine; Visit Provider Family Medicine | DX: N39.0 Urinary tract infection, site not specified (principal) | CPT/HCPCS: 87086 ==

== ENCOUNTER 2024-08-11 15:34 | Outpatient (CLI) | payer MEDICAID, SELFPAY ==
[2024-08-11 18:32] LABS: HCG,Quantitative 47328 mIU/ml (0-5.42)
[2024-08-13 09:13] LABS: Progesterone 20.9 ng/mL (.)
== END 2024-08-11 23:59 | disposition home or self-care (01) ==
LOC: LAB.DROPOF 08-12 12:15
PROVIDERS: PCP Nurse Practitioner Family; Visit Provider Nurse Practitioner Family
DX: Z32.01 Encounter for pregnancy test, result positive (principal)
CPT/HCPCS: 84144; 84702

== ENCOUNTER 2024-08-24 09:59 | Outpatient (CLI) | payer MEDICAID, SELFPAY ==
[2024-08-24 10:46] LABS: Basophils # 0.1 K/mm3 (0-0.2); Eosinophils % 0.4 % (0.1-12.0); Hematocrit 33.3 % (37.0-47.0); Lymphocytes # 1.6 K/mm3 (0.7-4.5); Lymphocytes % 22.5 % (10-50); Mean Corpuscular Hemoglobin 22.6 pg (27.0-31.2); Mean Corpuscular Volume 75.2 fl (81-99); Mean Platelet Volume 10.6 fl (7.4-10.4); Monocytes # 0.4 K/mm3 (0.1-1.0); Monocytes % 5.4 % (1.7-9.3); Neutrophils # 4.9 K/mm3 (1.8-7.8); Neutrophils % 70.4 % (37.0-80.0); Nucleated Red Blood Cells # 0 10^3/uL; Nucleated Red Blood Cells % 0 %; Platelet Count 368 K/mm3 (142-424); Red Blood Count 4.43 M/mm3 (4.20-5.40); Red Cell Distribution Width 18.1 % (11.5-17.5); Red Cell Distribution Width-SD 49.1 fL; White Blood Count 6.9 K/mm3 (4.8-10.8)
[2024-08-24 12:02] LABS: HIV Combo NEGATIVE (Negative)
[2024-08-24 12:09] LABS: Hepatitis C Ab Qual. W/ RFX NEGATIVE (Negative)
[2024-08-25 05:18] LABS: Hepatitis B Surface Antigen Negative (Negative)
[2024-08-25 07:07] LABS: RPR W/RFX Titers Nonreactive (Nonreactive)
[2024-08-25 08:33] LABS: Rubella Antibodies, IgG <0.90 index (Immune >0.99)
[2024-08-26 07:30] LABS: Neisseria gonorrhoeae, NAA Negative (Negative)
== END 2024-08-24 23:59 | disposition home or self-care (01) ==
LOC: LAB 10:00
PROVIDERS: PCP Nurse Practitioner Family; Visit Provider Obstetrics & Gynecology
DX: Z34.91 Encounter for supervision of normal pregnancy, unspecified, first trimester (principal)
CPT/HCPCS: 36415; 85025; 86592; 86762; 86803; 86850; 87340; 87389; 87491; 87591

== ENCOUNTER 2024-09-01 17:19 | Emergency (ER) | payer MEDICAID, SELFPAY ==
[2024-09-01 18:01] VITALS: BP 125/68; PULSE 79; RESP 17; TEMP 36.9; O2SAT 98; BMI 37.2
[2024-09-01 18:21] VITALS: PULSE 86; O2SAT 99
--- NOTE | 2024-09-01 18:22 | PC.NURSE ---
Patient just got pulled back to triage for lab to straight stick her.
[2024-09-01 18:46] LABS: Microscopic, Urine URINE MICROSCOPIC (MICROSCOPIC)
[2024-09-01 18:48] LABS: Basophils # 0.1 K/mm3 (0-0.2); Basophils % 0.8 % (0.1-2.0); Eosinophils # 0.1 Kmm3 (0.0-0.4); Eosinophils % 1.2 % (0.1-12.0); Hematocrit 31.9 % (37.0-47.0); Hemoglobin 9.8 g/dL (12.2-16.2); Immature Granulocytes # 0.02 10^3uL; Immature Granulocytes % 0.2 %; Lymphocytes # 2.6 K/mm3 (0.7-4.5); Lymphocytes % 26.1 % (10-50); Mean Corpuscular HGB Conc 30.7 g/dL (31.8-35.4); Mean Corpuscular Hemoglobin 23.6 pg (27.0-31.2); Mean Corpuscular Volume 76.9 fl (81-99); Mean Platelet Volume 10.4 fl (7.4-10.4); Monocytes # 0.6 K/mm3 (0.1-1.0); Monocytes % 5.9 % (1.7-9.3); Neutrophils # 6.4 K/mm3 (1.8-7.8); Neutrophils % 65.8 % (37.0-80.0); Nucleated Red Blood Cells # 0 10^3/uL; Nucleated Red Blood Cells % 0 %; Platelet Count 361 K/mm3 (142-424); Red Blood Count 4.15 M/mm3 (4.20-5.40); Red Cell Distribution Width 18.7 % (11.5-17.5); White Blood Count 9.8 K/mm3 (4.8-10.8)
[2024-09-01 18:50] LABS: Appearance,Urine CLEAR (Clear); Bilirubin,Urine Negative (Negative); Blood, Urine Negative (Negative); Color,Urine YELLOW (Yellow); Glucose,Urine (UA) Negative (Negative); Ketones,Urine Negative (Negative); Leukocyte Esterase,Urine Negative (Negative); Nitrate,Urine Negative (Negative); Protein,Urine Negative (Negative); Urobilinogen,Urine 0.2 EU/dl (0.2)
[2024-09-01 19:05] LABS: Alanine Aminotransferase 14 U/L (12-78); Albumin Level 4.4 g/dl (3.5-5.0); Albumin/Globulin Ratio 1.6 (1.1-1.8); Alkaline Phosphatase 55 U/L (38-126); Anion Gap 8.4 mEq/L (5-15); Aspartate Amino Transferase 22 U/L (14-36); Bilirubin,Total 0.3 mg/dl (0.2-1.3); Blood Urea Nitrogen 12 mg/dl (7-17); Calcium 8.8 mg/dl (8.4-10.2); Carbon Dioxide 25 mmol/L (22.0-30.0); Chloride 104 mmol/L (98-107); Creatinine Clearance Estimated 246 mL/min (50-200); Estimated Glomerular Filt Rate 141 ml/min (>60); GFR (African American) 171 ML/MIN (>60); Globulin 2.7 g/dL (1.3-3.2); Glucose 88 mg/dl (74-100); Potassium 3.4 mmoL/L (3.5-5.1); Sodium 134 mmol/L (136-145); Total Protein,Serum 7.1 g/dl (6.3-8.2)
[2024-09-01 19:17] LABS: Bacteria,Urine Trace /lpf
[2024-09-01 19:56] VITALS: BP 145/80; PULSE 77; O2SAT 100
[2024-09-01 20:00] VITALS: BP 130/80; PULSE 68; O2SAT 100
--- NOTE | 2024-09-01 21:07 | ED_ITS ---
<Statement entered by Adrianne Rodriguez MD - 09/01/24 21:29> I was consulted by the ESTHER, and we discussed the complexity of problems being addressed. I approved the treatment and management plan for this patient's care in the emergency department, thus performing a substantive portion of the medical decision making. Adrianne Rodriguez MD Discharge Plan Disposition Patient Disposition: Home, Self-Care Prescriptions Prescriptions: No Action PNV cmb#95-ferrous fumarate-FA [] 28 mg iron- 800 mcg tablet PO promethazine 12.5 mg tablet 12.5 mg PO Q6H PRN (Reason: nausea and vomiting) Qty: 30 2RF ferrous sulfate 325 mg (65 mg iron) tablet 325 mg PO DAILY Qty: 30 3RF fosfomycin tromethamine 3 gram packet 1 packet PO ONCE Qty: 1 0RF Referrals Follow up/Referrals: Reginald Harris MD [Primary Care Provider] - See instructions Activity Restrictions/Add. Instructions Additional Instructions/Restrictions: Today you were evaluated in the emergency department. Your workup was unremarkable. Your hCG is [id number]. A few of the tests that we are running off your urine will not be back until tomorrow, we will call you if any of these are positive. Please follow-up with your OB office tomorrow. Clinical Impressions Clinical Impression: Vaginal discharge Instructions Patient Instructions: Eating for Appropriate Weight Gain During Print Language Print Language: Citizen Of [place] Discharge ED Provider: Adrianne Rodriguez General Adult HPI General Chief complaint: Vaginal Bleeding Stated complaint: 9 weeks passing mucus with blood Time Seen by Provider: 09/01/24 20:09 Mode of Arrival: Ambulatory Source of Information: Patient Description of Symptoms (Recalled from ER Triage Doc. by RN): pt to the ED with blood tinged vaginal discharge since this morning. pt is currently 9 weeks pregant and being treated for a UTI. History of Present Illness HPI narrative: patient is a 34 year old female PMHx tobacco use, PCOS, Hx of anemia, who presents to the ED with 1 day of green vaginal discharge. Patient states this morning she woke up and noted bright green vaginal discharge, throughout the day she states the discharge has became darker. Related Data Home Medications ?Medication ?Instructions ?Recorded ?Confirmed vit no.95-ferrous tab PO 08/24/24 08/24/24 fumarate 28 mg-folic acid 800 mcg tablet () Previous Rx's ?Medication ?Instructions ?Recorded ferrous sulfate 325 mg (65 mg 325 mg PO DAILY #30 tabs 08/24/24 iron) tablet promethazine 12.5 mg tablet 12.5 mg PO Q6H PRN nausea and 08/24/24 vomiting #30 tabs fosfomycin tromethamine 3 gram 1 packet PO ONCE #1 ea 08/26/24 oral packet Allergies Allergy/AdvReac Type Severity Reaction Status Date / Time nitrofurantoin Allergy Intermediate Hives Verified 08/24/24 09:05 [facility] Disclaimer: The information contained in this section may have been updated after the patient was seen, as this information can be updated by other users. Medical History (Updated 09/01/24 @ 21:10 by Charley Cain APRN) Rubella non-immune status, antepartum Nausea/vomiting in Polyp at cervical os AMA (advanced maternal age) multigravida 35+ Tobacco use affecting , antepartum Patient desires Urinary tract infection History of COVID-19 Edema Bleeding after intercourse History of endometriosis PCOS (polycystic ovarian syndrome) Dyspareunia in female Dysmenorrhea Pelvic pain Abnormal uterine bleeding Heavy menstrual bleeding Vitamin D deficiency Iron deficiency anemia RLS (restless legs syndrome) Restless legs syndrome Anxiety Hypothyroidism Surgical History History of cholecystectomy Family History Grandmother Heart attack Hypertension Stroke Grandfather Hypertension Stroke Social History Smoking Status: Current every day smoker alcohol intake: never substance use type: denies use current occupational status: employed Travel in the last 8 weeks?: None current occupation: [employer]) caffeine: Yes Have you lived/traveled outside [place] in past 30 days?: No Contact w/someone who lives/traveled outside US past 30 days?: No Exposure to someone with infectious disease in past 14 days?: No Do you have a fever (greater than 100.4 F or 38 C)?: No Have you tested positive for COVID-19?: No Exposed to someone with COVID-19 in past 14 days?: No Do you have a sore throat?: No Do you have a cough?: No Do you have any weakness?: No Do you have any diarrhea?: No Are you experiencing any unusual bleeding?: No Do you have any muscle aches/pain?: No Do you have any abdominal pain?: No Are you experiencing loss of taste or smell?: No Other Medical History Have you received the Pneumonia Vaccine: No ROS Obtained: Yes Systems reviewed as appropriate & no additional complaints except as documented Physical Exam General General appearance: alert and in no apparent distress Head Head exam: atraumatic and normocephalic Eye Eye exam: Present normal appearance and PERRL ENT ENT exam: Present normal exam Neck Neck exam: Present normal inspection Chest Chest inspection: Present normal inspection and symmetric chest wall rise; Absent tenderness Respiratory Respiratory exam: Present normal lung sounds bilaterally Cardiovascular Cardiovascular exam: Present regular rate Abdominal Exam Abdominal exam: Present soft and normal bowel sounds; Absent tenderness Extremities Exam Extremities exam: Present normal inspection and full ROM Back Exam Back exam: Present normal inspection and full ROM Neurological Exam Neurological exam: Present alert and oriented X3 Psychiatric Psychiatric exam: Present normal affect and normal mood Skin Skin exam: Present warm and dry Medical Decision Making Medical Records Screening: Per USPSTF and CDC recommendations, given the prevalence of disease in our region, it is our hospital?s policy to screen for HIV and viral Hepatitis for all patients aged 18 and over and those with ongoing risk factors. Mau Inquiry Pt receiving controlled substance: No Vital Signs: 09/01/24 18:01 09/01/24 18:21 09/01/24 19:56 Temperature 98.4 F Temperature Source Oral Pulse Rate 86 77 Pulse Rate [Left Radial] 79 Respiratory Rate 17 Blood Pressure 145/80 H Blood Pressure [Right Arm] 125/68 Blood Pressure Mean [Right Arm] 87 Blood Pressure Source [Right Arm] Automatic Cuff Blood Pressure Position [Right Arm] Sitting 02 Sat by Pulse Oximetry 98 99 100 Oxygen Delivery Method Room Air Room Air Room Air 09/01/24 20:00 Temperature Temperature Source Pulse Rate 68 Pulse Rate [Left Radial] Respiratory Rate Blood Pressure 130/80 Blood Pressure [Right Arm] Blood Pressure Mean [Right Arm] Blood Pressure Source [Right Arm] Blood Pressure Position [Right Arm] 02 Sat by Pulse Oximetry 100 Oxygen Delivery Method Room Air Lab Data Lab Results 09/01/24 18:05: Urine Color Yellow, Urine Appearance Clear, Urine pH 6.0, Ur Specific [place] 1.010, Urine Protein Negative, Urine Glucose (UA) Negative, Urine Ketones Negative, Urine Blood Negative, Urine Nitrate Negative, Urine Bilirubin Negative, Urine Urobilinogen 0.2, Ur Leukocyte Esterase Negative, Urine RBC None, Urine WBC 3-5, Ur Squamous Epith Cells 3-5, Urine Bacteria Trace 09/01/24 18:32: WBC 9.8, RBC 4.15 L, Hgb 9.8 L, Hct 31.9 L, MCV 76.9 L, MCH 23.6 L, MCHC 30.7 L, RDW 18.7 H, Plt Count 361, MPV 10.4, Neut % (Auto) 65.8, Lymph % (Auto) 26.1, [place] % (Auto) 5.9, Eos % (Auto) 1.2, Baso % (Auto) 0.8, Neut # (Auto) 6.4, Lymph # (Auto) 2.6, [place] # (Auto) 0.6, Eos # (Auto) 0.1, Baso # (Auto) 0.1, Sodium 134 L, Potassium 3.4 L, Chloride 104, Carbon Dioxide 25, Anion Gap 8.4, BUN 12, Creatinine 0.50 L, Estimated Creat Clear 246, Estimated GFR 141, Est GFR ( Amer) 171, Glucose 88, Calcium 8.8, Total Bilirubin 0.3, AST 22, ALT 14, Alkaline Phosphatase 55, Total Protein 7.1, Albumin 4.4, Globulin 2.7, Albumin/Globulin Ratio 1.6, HCG, Quant [id number] H, Blood Type A Positive, Antibody Screen Negative 09/01/24 18:32 09/01/24 18:32 Orders (Tests/Meds): ORDERS Category Date Time Status Type and Screen Stat BBK 09/01/24 18:32 Completed CBC w/Auto Diff [Complete Blood Count Auto Diff] Stat Lab 09/01/24 18:32 Completed CMP [Comprehensive Metabolic Panel] Stat Lab 09/01/24 18:32 Completed HCG,Quantitative Stat Lab 09/01/24 18:32 Completed UA [Urinalysis and Microscopic] Stat Lab 09/01/24 18:05 Completed Urine Chlam/Gono/Trich, FORREST Stat Lab 09/01/24 18:05 Received Medical Decision Narrative: In summary, patient is a 34 year old female PMHx tobacco use, PCOS, Hx of anemia, who presents to the ED with 1 day of green vaginal discharge. Patient states this morning she woke up and noted bright green vaginal discharge, throughout the day she states the discharge has became darker. She states that it was dark brown this evening. She reports that she has had abdominal pain around the umbilicus during her entire , no worsening of pain or change of the abdominal pain. She denies fever, body aches, chills. Denies back pain. States she has been following up with her OB as scheduled. Upon initial evaluation patient is alert, oriented and cooperative. She is hemodynamically stable. Physical exam is unremarkable. Differential diagnosis includes vaginal bleeding, UTI, STD, among others. CBC unremarkable for any leukocytosis, stable H&H. CMP unremarkable for any actionable abnormalities. hCG from 08/11/2024 47,328 and today's hCG has increased to 116,050. Urinalysis unremarkable for any infectious process. Discussed with patient that the STD testing will be back tomorrow. I advised her to please follow-up with OB office tomorrow for further evaluation. We discussed return precautions to the ED. Pelvic rest. Increase fluid intake. Critical Care Critical Care Time Critical Care Time: No
[2024-09-01 21:29] VITALS: BP 120/74; PULSE 72; RESP 16; TEMP 36.6; O2SAT 98
[2024-09-02 02:50] LABS: Chlamydia trachomatis Negative (Negative); Neisseria gonorrhoeae Negative (Negative); Trichomonas vaginalis Negative (Negative)
== END 2024-09-01 21:33 | disposition home or self-care (01) ==
PROVIDERS: Nurse Practitioner; Emergency Provider Student in an Organized Health Care Education/Training Program; PCP Family Medicine
DX: O26.891 Other specified pregnancy related conditions, first trimester (principal); N89.8 Other specified noninflammatory disorders of vagina; O99.331 Smoking (tobacco) complicating pregnancy, first trimester; F17.200 Nicotine dependence, unspecified, uncomplicated; Z3A.09 9 weeks gestation of pregnancy
CPT/HCPCS: 36415; 80053; 81001; 84702; 85025; 86850; 87491; 87591; 87661; 99283

== ENCOUNTER 2024-10-26 14:42 | Outpatient (CLI) | payer MEDICAID, SELFPAY ==
--- OUTSIDE RECORDS SUMMARY | 2024-10-26 14:45 | XMS_ITS | Clinical Summary ---
Author Organization [facility] Address [address] [place] [address] Care Team Providers Care Gang Drill Press Operator Name Role Phone Unavailable Primary Care Provider Unavailabl e Social History Tobacco Use Types Packs/Day Years Used Date Smoking Tobacco: Never Comments Unknown Sex and Gender Information Value Date Recorded Sex Assigned at Not on file Legal Sex Female 8:58 PM EDT Gender Identity Not on file Sexual Orientation Not on file Last Filed Vital Signs Vital Sign Reading Time Taken Comments Blood Pressure - - Pulse - - Temperature - - Respiratory Rate - - Oxygen Saturation - - Inhaled Oxygen Concentration - - Weight 110 kg (242 lb 15.9 oz) 09/19/2014 1:06 P M EDT Height 167.6 cm (5' 6 ) 09/19/2014 1:06 PM EDT Body Mass Index 39.22 09/19/2014 1:06 PM EDT Plan of Treatment Not on file
--- NOTE | 2024-10-26 14:56 | US_ITS ---
PROCEDURE: US OB >= 14 WEEKS FETUS CLINICAL INDICATION: placenta and baby COMPARISON: No exams were available for comparison FINDINGS: Transabdominal sonographic images of the pelvis were obtained. The following parameters are obtained: From her established due date she is 17weeks 3days Viable fetus in the breech presentation with a posterior placenta grade 1. The placenta is well away from the cervix. The cervix measures 3.68 cm. There appear to be a in anterior contraction during the examination. heart rate: 152bpm bpm. Average ultrasound age 17 weeks 6 days BPD: 18weeks 1day HC: 17weeks 5days AC: 18weeks 2days FL: 17weeks 1day HC/AC: 1.15 FL/BPD: 0.6 FL/AC: 0.19 Growth percentile: 64 Amniotic fluid: MVP 4.28 cm No obvious anomalies evident. profile seen, stomach, three-vessel cord, four chamber heart appear normal. IMPRESSION: 1. Viable fetus in the breech presentation with posterior placenta grade 1. The placenta is well away from the internal os. (At least 9 cm) 2. Cervix appears long and closed. There appear to be an anterior contraction during the examination. 3. The fluid is within normal limits with an MVP 4.28 cm. 4. Fetus biometry is consistent with the dates and is 64th percentile. 5. Limited anatomical scan appears normal. Suggest complete anatomical scan in 3 weeks. Dictated by: Mor Madrigal MD 10/26/2024 15:54 Mor Madrigal MD in OV 10/26/2024 15:54
== END 2024-10-26 23:59 | disposition home or self-care (01) ==
LOC: RAD 14:42
PROVIDERS: PCP Family Medicine; Visit Provider Obstetrics & Gynecology
DX: O99.212 Obesity complicating pregnancy, second trimester (principal); O32.1XX0 Maternal care for breech presentation, not applicable or unspecified; O26.892 Other specified pregnancy related conditions, second trimester; E66.9 Obesity, unspecified; R10.9 Unspecified abdominal pain; Z3A.17 17 weeks gestation of pregnancy; Z36.2 Encounter for other antenatal screening follow-up
CPT/HCPCS: 76805

== ENCOUNTER 2024-10-27 16:04 | Emergency (ER) | payer MEDICAID, SELFPAY ==
[2024-10-27 16:15] VITALS: BP 134/79; PULSE 69; RESP 20; TEMP 36.8; O2SAT 100; BMI 39.4
--- OUTSIDE RECORDS SUMMARY | 2024-10-27 16:15 | XMS_ITS | Clinical Summary ---
Author Organization [facility] Address [address] [place] [address] Care Team Providers Care Formula Checker Name Role Phone Unavailable Primary Care Provider [...]
[2024-10-27 16:21] LABS: Microscopic, Urine URINE MICROSCOPIC (MICROSCOPIC)
[2024-10-27 16:46] LABS: Bilirubin,Urine Negative (Negative); Color,Urine YELLOW (Yellow); Glucose,Urine (UA) Negative (Negative); Ketones,Urine Negative (Negative); Leukocyte Esterase,Urine 1+ (Negative); PH,Urine 6.5 (5.0-8.5); Protein,Urine Negative (Negative); Specific Gravity, Urine 1.010 (1.005-1.030); Urobilinogen,Urine 0.2 EU/dl (0.2)
--- NOTE | 2024-10-27 17:00 | XR_ITS ---
PROCEDURE INFORMATION: Exam: XR Right Ankle Exam date and time: 10/27/2024 5:23 PM Age: 34 years old Clinical indication: Injury or trauma; Fall; Other: Pain; Additional info: Fall, pain TECHNIQUE: Imaging protocol: Radiologic exam of the right ankle. Views: 1 or 2 views. COMPARISON: MR ANKLE RT WO CON 03/13/2022 1:38 PM FINDINGS: Bones/joints: No acute fracture identified. Soft tissues: Normal. IMPRESSION: No acute findings.
--- NOTE | 2024-10-27 17:00 | XR_ITS ---
PROCEDURE INFORMATION: Exam: XR Right Wrist Exam date and time: 10/27/2024 5:23 PM Age: 34 years old Clinical indication: Injury or trauma; Fall; Other: Pain; Additional info: Fall, pain TECHNIQUE: Imaging protocol: Radiologic exam of the right wrist. Views: 3 or more views. COMPARISON: No relevant prior studies available. FINDINGS: Bones/joints: No acute fracture identified. Old healed distal 5th metacarpal fracture. Soft tissues: Normal. IMPRESSION: No acute findings.
--- NOTE | 2024-10-27 17:01 | HMH.EDGENADL ---
Discharge Plan Disposition Patient Disposition: Home, Self-Care Condition: Good Prescriptions Prescriptions: New cefdinir 300 mg capsule 300 mg PO BID 7 Days Qty: 14 0RF No Action ferrous sulfate 325 mg (65 mg iron) tablet 325 mg PO DAILY Qty: 30 3RF PNV cmb#95-ferrous fumarate-FA [] 28 mg iron- 800 mcg tablet PO magnesium 200 mg tablet 200 mg PO BID Alive Daily Support 180 mcg-25 mg- 25 mg tablet,chewable 1 tab PO DAILY Qty: 90 3RF Referrals Follow up/Referrals: Reginald Harris MD [Primary Care Provider, Internal Medicine] - See instructions Activity Restrictions/Add. Instructions Additional Instructions/Restrictions: You were evaluated in the emergency department today. Please follow-up closely with your primary care provider as well as with OB for reassessment. Today, your x-rays are reassuring. Return to the emergency department for new or worsening symptoms. Take Tylenol at home as needed for pain. Of note, you do have some bacteria in your urine, for which I am prescribing you medication. Clinical Impressions Clinical Impression: Fall, Muscle strain of right wrist, Muscle strain of right ankle, Low back pain, Bacteriuria during Stand Alone Forms Stand Alone Forms: Work/School Release Instructions Patient Instructions: DI for Wrist Sprain, DI for Low Back Pain, DI for Ankle Sprain, How to Prevent Falls Print Language Print Language: Bulgarian Discharge ED Provider: Millicent Mora General Adult HPI General Chief complaint: Fall Stated complaint: AO 10/27/24 1500 fell injury head,back r wrist,ank Time Seen by Provider: 10/27/24 16:10 Mode of Arrival: Ambulatory Source of Information: Patient Description of Symptoms (Recalled from ER Triage Doc. by RN): pt slipped and fell at work. injured her r wrist,r ankle,r buttock,lower back,and head. denies LOC currently 17 weeks . c/o lower abdominal pressure History of Present Illness HPI narrative: This patient is a 34-year-old G5, P4 at estimated 17 weeks gestation presenting to the emergency department for evaluation with concern for head pain, low back pain, buttock pain, right wrist pain, right ankle pain after mechanical ground-level fall at work. She states that she slipped and fell backwards. She hit her head but did not lose consciousness. She states that she tried to catch her self with her right arm and thinks that she injured her right wrist. She also has pain in her right ankle with mild swelling. She states she is still able to walk but it hurts to bear weight. She was well prior to this. She does note that she peed on herself with the fall and has since been having some lower abdominal pressure, but no vaginal bleeding or leakage of fluid. She is not having any episodic pain consistent with contractions. She does not take blood thinners or aspirin. No numbness, tingling, or saddle anesthesia. No other concerns or complaints noted. Related Data Home Medications ?Medication ?Instructions ?Recorded ?Confirmed vit no.95-ferrous tab PO 10/03/24 10/17/24 fumarate 28 mg-folic acid 800 mcg tablet () magnesium 200 mg tablet 200 mg PO BID 10/17/24 10/17/24 Previous Rx's ?Medication ?Instructions ?Recorded ferrous sulfate 325 mg (65 mg 325 mg PO DAILY #30 tabs 09/21/24 iron) tablet mv-mn no.97-folic 180 mcg-dha 25 1 tab PO DAILY #90 tabs 09/26/24 mg-herb no.293 25 mg chewable tablet (Alive Daily Support ) cefdinir 300 mg capsule 300 mg PO BID 7 days #14 caps 10/27/24 Allergies Allergy/AdvReac Type Severity Reaction Status Date / Time nitrofurantoin Allergy Intermediate Hives Verified 10/17/24 09:58 [facility] Disclaimer: The information contained in this section may have been updated after the patient was seen, as this information can be updated by other users. Medical History (Updated 10/27/24 @ 17:45 by Millicent Mora DO) Cramping affecting , antepartum Maternal obesity affecting , antepartum Blurry vision, bilateral Headache Rubella non-immune status, antepartum Nausea/vomiting in Polyp at cervical os AMA (advanced maternal age) multigravida 35+ Tobacco use affecting , antepartum Patient desires Urinary tract infection History of COVID-19 Edema Bleeding after intercourse History of endometriosis PCOS (polycystic ovarian syndrome) Dyspareunia in female Dysmenorrhea Pelvic pain Abnormal uterine bleeding Heavy menstrual bleeding Vitamin D deficiency Iron deficiency anemia RLS (restless legs syndrome) Restless legs syndrome Anxiety Hypothyroidism Surgical History History of cholecystectomy Family History Grandmother Heart attack Hypertension Stroke Grandfather Hypertension Stroke Social History Smoking Status: Never smoker alcohol intake: never substance use type: denies use current occupational status: employed Travel in the last 8 weeks?: None current occupation: [employer] caffeine: Yes Have you lived/traveled outside [place] in past 30 days?: No Contact w/someone who lives/traveled outside US past 30 days?: No Exposure to someone with infectious disease in past 14 days?: No Do you have a fever (greater than 100.4 F or 38 C)?: No Have you tested positive for COVID-19?: No Exposed to someone with COVID-19 in past 14 days?: No Do you have a sore throat?: No Do you have a cough?: No Do you have any weakness?: No Do you have any diarrhea?: No Are you experiencing any unusual bleeding?: No Do you have any muscle aches/pain?: No Do you have any abdominal pain?: No Are you experiencing loss of taste or smell?: No Other Medical History Have you received the Pneumonia Vaccine: No ROS Obtained: Yes All systems reviewed & no additional complaints except as documented Physical Exam General General appearance: alert and in no apparent distress Head Head exam: atraumatic and normocephalic Eye Eye exam: Present normal appearance, PERRL and EOMI ENT ENT exam: Present normal exam, normal oropharynx, mucous membranes moist and normal external ear exam Neck Neck exam: Present normal inspection, full ROM and trachea midline; Absent tenderness Chest Chest inspection: Present normal inspection and symmetric chest wall rise; Absent tenderness Respiratory Respiratory exam: Present normal lung sounds bilaterally; Absent respiratory distress, wheezes, stridor or accessory muscle use Cardiovascular Cardiovascular exam: Present regular rate and normal rhythm Abdominal Exam Abdominal exam: Present soft; Absent distention, tenderness or guarding Extremities Exam Extremities exam: Present full ROM, tenderness (R wrist, R ankle. ), normal capillary refill and other (All compartment soft, neurovascularly intact distally. No open wounds. No significant bruising); Absent edema Back Exam Back exam: Present full ROM and tenderness (Bilateral lumbar paraspinal muscles. No midline step-offs or deformities) Neurological Exam Neurological exam: Present alert, oriented X3, CN II-XII intact and normal gait; Absent motor sensory deficit Psychiatric Psychiatric exam: Present normal affect and normal mood Skin Skin exam: Present warm and dry Medical Decision Making Medical Records Medical records reviewed: Yes I reviewed the patient's medical records. Screening: Per USPSTF and CDC recommendations, given the prevalence of disease in our region, it is our hospital?s policy to screen for HIV and viral Hepatitis for all patients aged 18 and over and those with ongoing risk factors. Mau Inquiry Pt receiving controlled substance: No Vital Signs: 10/27/24 16:15 10/27/24 17:15 10/27/24 17:21 Temperature 98.2 F Temperature Source Oral Pulse Rate 67 63 Pulse Rate [Right] 69 Respiratory Rate 20 19 17 Blood Pressure 118/71 122/53 L Blood Pressure [Right Arm] 134/79 Blood Pressure Mean 88 76 Blood Pressure Mean [Right Arm] 97 Blood Pressure Source Blood Pressure Position 02 Sat by Pulse Oximetry 100 96 99 Oxygen Delivery Method Room Air Room Air 10/27/24 17:52 Temperature 98.7 F Temperature Source Oral Pulse Rate 78 Pulse Rate [Right] Respiratory Rate 19 Blood Pressure 122/79 Blood Pressure [Right Arm] Blood Pressure Mean Blood Pressure Mean [Right Arm] Blood Pressure Source Automatic Cuff Blood Pressure Position Sitting 02 Sat by Pulse Oximetry Oxygen Delivery Method Room Air Lab Data Lab results reviewed: Yes I reviewed the patient's lab results. Lab Results 10/27/24 16:15: Urine Color Yellow, Urine Appearance Clear, Urine pH 6.5, Ur Specific [place] 1.010, Urine Protein Negative, Urine Glucose (UA) Negative, Urine Ketones Negative, Urine Blood Negative, Urine Nitrate Negative, Urine Bilirubin Negative, Urine Urobilinogen 0.2, Ur Leukocyte Esterase 1+ A, Urine RBC Occasional, Urine WBC 5-10, Ur Squamous Epith Cells 3-5, Urine Bacteria 3+ Orders (Tests/Meds): ORDERS Category Date Time Status Ankle XR - Right 2 Views [XR ankle RT 2V] Stat Exams 10/27/24 17:00 Completed Wrist XR right minimum 3 views [XR wrist RT min 3V] Exams 10/27/24 17:00 Completed Stat UA [Urinalysis and Microscopic] Stat Lab 10/27/24 16:15 Completed Urine Culture Stat Micro 10/27/24 16:15 Received Medical Decision Narrative: In summary, this patient is a 34-year-old female who is currently 17 weeks presenting to the Emergency Department for evaluation of headache, low back pain, right wrist pain, right ankle pain after slip and fall at work. Differential diagnoses considered include but are not limited to fracture, contusion, strain/sprain, concussion, intracranial hemorrhage, spine fracture. Ruling out the most morbid conditions drove assessment. I reviewed patient's past medical records and noted prior OB evaluations for maintenance of health in the setting of . On exam, the patient is sitting upright in no acute distress. She is ambulatory. She is neurovascularly intact in all 4 extremities with no significant bruising or swelling. She has bilateral lower lumbar tenderness to palpation but no midline step-offs or deformities. She hit her head but has no obvious hematoma, step-offs, or other acute concerns on exam. She is neurologically intact. She did not lose consciousness when this happened and has had no vomiting. Abdominal exam is benign. I had shared decision-making with the patient and explained risk versus benefit of obtaining imaging, such as CTs of the spines and head as well as x-rays of the injured extremities. Patient does not want to proceed with CTs, but she is wanting to proceed with x-rays of the extremities with shielding of her abdomen. Workup also included bedside OB ultrasound and urinalysis. She declines need for Tylenol or other medications. Bedside OB ultrasound is reassuring. She has good amount of amniotic fluid, good movement, good heart tones. She is also had no vaginal bleeding, contractions, leakage of fluid. Workup included x-rays of the right wrist and right ankle and urinalysis. I independently interpreted x-ray prior to the radiologist read and noted acute fracture. Please see their read for final interpretation. Urine is concerning for bacteria, will treat as asymptomatic bacteriuria in the setting of with cefdinir. Overall, I feel the patient is appropriate for discharge home with diagnoses of minor traumatic injuries from a ground-level fall. She was given instructions for very close follow-up and strict return precautions. She was discharged in stable condition Procedures Limited Ultrasound Findings:: Limited OB ultrasound Indication: , trauma Identified structures: [-Uterus -Pouch of Jagdish] Findings: Uterus: Definitive IUP with good movement, good amount of amniotic fluid FHR: 150 Cul de sac: Free fluid absent Impression: -IUP: Present - heart rate: 150 -Free fluid: Absent Images were saved to permanent archive The study was technically adequate CPT Transabdominal: 58132-09 This study was performed by me, and I personally interpreted all images/videos. Based on my clinical judgement, these images were adequate and did not necessitate further imaging. Critical Care Critical Care Time Critical Care Time: No
[2024-10-27 17:15] VITALS: BP 118/71; PULSE 67; RESP 19; O2SAT 96
[2024-10-27 17:21] VITALS: BP 122/53; PULSE 63; RESP 17; O2SAT 99
[2024-10-27 17:38] LABS: RBC,Urine Occasional #/hpf (0-3)
[2024-10-27 17:39] LABS: Bacteria,Urine 3+ /lpf
[2024-10-27 17:52] VITALS: BP 122/79; PULSE 78; RESP 19; TEMP 37.1; O2SAT 98
== END 2024-10-27 17:54 | disposition home or self-care (01) ==
PROVIDERS: Emergency Provider Emergency Medicine; PCP Family Medicine
DX: O9A.213 Injury, poisoning and certain other consequences of external causes complicating pregnancy, third trimester (principal); S66.911A Strain of unspecified muscle, fascia and tendon at wrist and hand level, right hand, initial encounter; S96.911A Strain of unspecified muscle and tendon at ankle and foot level, right foot, initial encounter; O99.891 Other specified diseases and conditions complicating pregnancy; R82.71 Bacteriuria; M54.50 Low back pain, unspecified; Z3A.17 17 weeks gestation of pregnancy; W01.10XA Fall on same level from slipping, tripping and stumbling with subsequent striking against unspecified object, initial encounter
CPT/HCPCS: 73110; 73600; 81001; 87086; 99283

== ENCOUNTER 2024-11-03 14:30 | Emergency (ER) | payer MEDICAID, SELFPAY ==
[2024-11-03] VITALS (8 sets, daily range): BP systolic 104–128; BP diastolic 53–81; PULSE 60–87; RESP 15–19; TEMP 36.5–36.7; O2SAT 98–100; BMI 42.3
[2024-11-03 14:40] LABS: Microscopic, Urine URINE MICROSCOPIC (MICROSCOPIC)
--- OUTSIDE RECORDS SUMMARY | 2024-11-03 14:40 | XMS_ITS | Clinical Summary ---
Author Organization [facility] Address [address] [place] [address] Care Team Providers Care School Clerk Name Role Phone Unavailable Primary Care Provider [...]
[2024-11-03 14:45] LABS: Bilirubin,Urine Negative (Negative); Color,Urine YELLOW (Yellow); Glucose,Urine (UA) Negative (Negative); Ketones,Urine Negative (Negative); Leukocyte Esterase,Urine 1+ (Negative); PH,Urine 7.0 (5.0-8.5); Protein,Urine Negative (Negative); Specific Gravity, Urine <= 1.005 (1.005-1.030); Urobilinogen,Urine 0.2 EU/dl (0.2)
--- NOTE | 2024-11-03 14:55 | US_ITS ---
PROCEDURE INFORMATION: Exam: US , Transvaginal Exam date and time: 11/03/2024 3:50 PM Age: 34 years old Clinical indication: Lmp or gestational age (in weeks): 18w4d; Antepartum complications; Bleeding; ; Additional info: 2nd trimester bleeding LABS AND CLINICAL REPORTS: Gestational age (Established): 18 w 4 d Estimated due date (Established): 04/02/2025 TECHNIQUE: Imaging protocol: Real-time transvaginal obstetrical ultrasound of the maternal pelvis with image documentation. Transvaginal imaging was used for better evaluation of the fetus, adnexa, and/or cervix. COMPARISON: US OB >= 14 WEEKS FETUS 10/26/2024 2:45 PM FINDINGS: A limited study was performed to evaluate for placenta and cervix. Gestation: There is a single live intrauterine gestation in cephalic presentation. heart rate: 150 bpm Placenta: The placenta is posterior and does not cover the internal cervix os. The posterior placenta measures approximately 4.7 cm from the internal cervical os. There is motion and mild debris within the amniotic fluid near the cervix with color flow. MATERNAL: Uterus: A contraction is noted involving the anterior uterus. Cervix: Cervical length measures 3.06 cm. The cervix is within range of normal. No cervical funneling. Other findings: anatomic survey was not performed. A recent OB ultrasound was performed on 10/26/2024. IMPRESSION: 1. Limited study. 2. Single live intrauterine gestation with motion visualized. 3. Normal appearance of the cervix measuring 3.1 cm. 4. Posterior placenta without previa. 5. Anterior uterine contraction.
--- NOTE | 2024-11-03 14:57 | PC.NURSE ---
RADIOLOGY NOTIFIED OF TRANSVAGINAL US
[2024-11-03 15:04] LABS: Bacteria,Urine 3+ /lpf
[2024-11-03 15:15] LABS: Hematocrit 39.1 % (37.0-47.0); Hemoglobin 12.3 g/dL (12.2-16.2); Immature Granulocytes % 0.5 %; Mean Corpuscular HGB Conc 31.5 g/dL (31.8-35.4); Mean Corpuscular Hemoglobin 26.2 pg (27.0-31.2); Mean Corpuscular Volume 83.2 fl (81-99); Nucleated Red Blood Cells % 0 %; Platelet Count 282 K/mm3 (142-424); Red Blood Count 4.70 M/mm3 (4.20-5.40); Red Cell Distribution Width-SD 52.5 fL; White Blood Count 8.6 K/mm3 (4.8-10.8)
[2024-11-03 15:25] LABS: Chloride 99 mmol/L (98-107)
[2024-11-03 15:26] LABS: Albumin Level 4.7 g/dl (3.5-5.0); Potassium 3.7 mmoL/L (3.5-5.1); Sodium 134 mmol/L (136-145)
[2024-11-03 15:28] LABS: Blood Urea Nitrogen 5 mg/dl (7-17); Creatinine Clearance Estimated 131 mL/min (50-200); Creatinine,Serum 0.50 mg/dl (0.52-1.04); Estimated Glomerular Filt Rate 141 ml/min (>60); GFR (African American) 171 ML/MIN (>60)
[2024-11-03 15:29] LABS: Alanine Aminotransferase 13 U/L (12-78); Albumin/Globulin Ratio 1.3 (1.1-1.8); Alkaline Phosphatase 77 U/L (38-126); Anion Gap 13.7 mEq/L (5-15); Aspartate Amino Transferase 24 U/L (14-36); Bilirubin,Total 0.4 mg/dl (0.2-1.3); Calcium 9.3 mg/dl (8.4-10.2); Carbon Dioxide 25 mmol/L (22.0-30.0); Globulin 3.6 g/dL (1.3-3.2); Glucose 83 mg/dl (74-100); Total Protein,Serum 8.3 g/dl (6.3-8.2)
--- NOTE | 2024-11-03 16:00 | PC.NURSE ---
Patient to ultrasound now via wheelchair.
--- NOTE | 2024-11-03 17:19 | HMH.EDGENADL ---
Discharge Plan Disposition Patient Disposition: Home, Self-Care Prescriptions Prescriptions: No Action PNV no.95-ferrous fumarate-FA [] 28 mg iron- 800 mcg tablet PO magnesium 200 mg tablet 200 mg PO BID cefdinir 300 mg capsule 300 mg PO BID 7 Days Qty: 14 0RF Referrals Follow up/Referrals: Reginald Harris MD [Primary Care Provider, Internal Medicine] - See instructions Activity Restrictions/Add. Instructions Additional Instructions/Restrictions: Follow-up with your OB physician in 2 days for repeat blood work and reevaluation. Take the Cefdinir for the bacteria in your urine. You are being prescribed an antibiotic. Take this as prescribed. If you develop any new or worsening symptoms, such as worsening bleeding, pain, fever, or if you become concerned for your health for any reason, return to the emergency department for evaluation Clinical Impressions Clinical Impression: Asymptomatic bacteriuria in , Vaginal bleeding during Print Language Print Language: Mongolian Discharge ED Provider: Gabriel Dickey Adult HPI <Gabriel Dickey DO - Last Filed: 11/03/24 17:29> General Chief complaint: Vaginal Bleeding Stated complaint: Heavy bleeding & clotting 18 weeks prengant Time Seen by Provider: 11/03/24 14:35 Mode of Arrival: Ambulatory Source of Information: Patient Description of Symptoms (Recalled from ER Triage Doc. by RN): Patient presents to ED with c/o vaginal bleeding, reports she is 18 wks . States she passed a clot today and had some very mild spotting. Denies cramping but notes some mild pelvic pressure, states she has a known tear in her placenta and she is currently being treated for a UTI. History of Present Illness HPI narrative: This is a 34-year-old female patient, with past medical history of PCOS and endometriosis who is and currently 18 weeks , who is presenting to the emergency department today for evaluation of vaginal bleeding. The patient states that earlier today she noticed that there was some clots of blood present on her panties. She states that when she went to the restroom later on the day she also noticed that there was some blood on the toilet paper. She has not had any abdominal cramping. She has not had any large-volume vaginal bleeding. She has not necessitated the use of any menstrual product such as tampons or pads. She is not feeling symptoms consistent with blood loss anemia such as shortness of breath or dyspnea on exertion. Notably, the patient was seen in the emergency department 2 days ago after falling. At that time she had a traumatic workup that was negative and she did have a bedside POCUS assessment that showed normal heart rate. She was diagnosed with asymptomatic bacteriuria and was started on cefdinir. Related Data Home Medications ?Medication ?Instructions ?Recorded ?Confirmed vit no.95-ferrous tab PO 10/03/24 11/01/24 fumarate 28 mg-folic acid 800 mcg tablet () magnesium 200 mg tablet 200 mg PO BID 10/17/24 11/01/24 Previous Rx's ?Medication ?Instructions ?Recorded cefdinir 300 mg capsule 300 mg PO BID 7 days #14 caps 10/27/24 Allergies Allergy/AdvReac Type Severity Reaction Status Date / Time nitrofurantoin Allergy Intermediate Hives Verified 11/01/24 10:32 [facility] <Gabriel Dickey DO - Last Filed: 11/03/24 17:29> [facility] Disclaimer: The information contained in this section may have been updated after the patient was seen, as this information can be updated by other users. Medical History Cramping affecting , antepartum Maternal obesity affecting , antepartum Blurry vision, bilateral Headache Rubella non-immune status, antepartum Nausea/vomiting in Polyp at cervical os AMA (advanced maternal age) multigravida 35+ Tobacco use affecting , antepartum Patient desires Urinary tract infection History of COVID-19 Edema Bleeding after intercourse History of endometriosis PCOS (polycystic ovarian syndrome) Dyspareunia in female Dysmenorrhea Pelvic pain Abnormal uterine bleeding Heavy menstrual bleeding Vitamin D deficiency Iron deficiency anemia RLS (restless legs syndrome) Restless legs syndrome Anxiety Hypothyroidism Surgical History History of cholecystectomy Family History Grandmother Heart attack Hypertension Stroke Grandfather Hypertension Stroke Social History Smoking Status: Former smoker alcohol intake: never substance use type: denies use current occupational status: employed Travel in the last 8 weeks?: None current occupation: [employer] caffeine: Yes Have you lived/traveled outside US in past 30 days?: No Contact w/someone who lives/traveled outside US past 30 days?: No Exposure to someone with infectious disease in past 14 days?: No Do you have a fever (greater than 100.4 F or 38 C)?: No Have you tested positive for COVID-19?: No Exposed to someone with COVID-19 in past 14 days?: No Do you have a sore throat?: No Do you have a cough?: No Do you have any weakness?: No Do you have any diarrhea?: No Are you experiencing any unusual bleeding?: No Do you have any muscle aches/pain?: No Do you have any abdominal pain?: No Are you experiencing loss of taste or smell?: No Other Medical History Have you received the Pneumonia Vaccine: No <Gabriel Dickey DO - Last Filed: 11/03/24 17:29> ROS Obtained: Yes Systems reviewed as appropriate & no additional complaints except as documented Physical Exam <Gabriel Dickey DO - Last Filed: 11/03/24 17:29> General General appearance: alert and in no apparent distress Head Head exam: atraumatic and normocephalic Eye Eye exam: Present PERRL and EOMI ENT ENT exam: Present normal oropharynx and mucous membranes moist Neck Neck exam: Present full ROM and trachea midline Respiratory Respiratory exam: Present normal lung sounds bilaterally; Absent respiratory distress Cardiovascular Cardiovascular exam: Present regular rate and normal rhythm Abdominal Exam Abdominal exam: Present soft; Absent tenderness Extremities Exam Extremities exam: Present normal inspection; Absent tenderness Back Exam Back exam: Absent vertebral tenderness Neurological Exam Neurological exam: Present alert and oriented X3 Skin Skin exam: Present warm and dry Medical Decision Making <Gabriel Dickey DO - Last Filed: 11/03/24 17:29> Medical Records Medical records reviewed: Yes I reviewed the patient's medical records. Screening: Per USPSTF and CDC recommendations, given the prevalence of disease in our region, it is our hospital?s policy to screen for HIV and viral Hepatitis for all patients aged 18 and over and those with ongoing risk factors. Mau Inquiry Pt receiving controlled substance: No Mau was queried for this patient: No Vital Signs: 11/03/24 14:40 11/03/24 14:47 11/03/24 15:01 Temperature 97.7 F Temperature Source Oral Pulse Rate 87 67 Pulse Rate [Right] 69 Respiratory Rate 19 19 17 Blood Pressure 128/80 Blood Pressure [Right Arm] 125/53 L Blood Pressure Mean 86 Blood Pressure Mean [Right Arm] 77 Blood Pressure Source Blood Pressure Source [Right Arm] Automatic Cuff Blood Pressure Position Blood Pressure Position [Right Arm] Sitting 02 Sat by Pulse Oximetry 100 100 100 Oxygen Delivery Method Room Air Room Air Room Air 11/03/24 15:30 11/03/24 16:28 11/03/24 16:30 Temperature Temperature Source Pulse Rate 64 65 60 Pulse Rate [Right] Respiratory Rate 19 17 19 Blood Pressure 104/74 L 120/81 110/70 Blood Pressure [Right Arm] Blood Pressure Mean 84 92 84 Blood Pressure Mean [Right Arm] Blood Pressure Source Blood Pressure Source [Right Arm] Blood Pressure Position Blood Pressure Position [Right Arm] 02 Sat by Pulse Oximetry 99 100 100 Oxygen Delivery Method Room Air Room Air Room Air 11/03/24 17:00 11/03/24 17:58 Temperature 98.1 F Temperature Source Oral Pulse Rate 65 84 Pulse Rate [Right] Respiratory Rate 17 15 Blood Pressure 119/76 125/75 Blood Pressure [Right Arm] Blood Pressure Mean 89 Blood Pressure Mean [Right Arm] Blood Pressure Source Automatic Cuff Blood Pressure Source [Right Arm] Blood Pressure Position Sitting Blood Pressure Position [Right Arm] 02 Sat by Pulse Oximetry 98 Oxygen Delivery Method Room Air Room Air Lab Data Lab Results 11/03/24 14:36: Urine Color Yellow, Urine Appearance Clear, Urine pH 7.0, Ur Specific [place] <= 1.005, Urine Protein Negative, Urine Glucose (UA) Negative, Urine Ketones Negative, Urine Blood 2+ A, Urine Nitrate Negative, Urine Bilirubin Negative, Urine Urobilinogen 0.2, Ur Leukocyte Esterase 1+ A, Urine WBC 10-20, Ur Squamous Epith Cells 10-20, Urine Bacteria 3+ 11/03/24 15:05: Blood Type A Positive, Antibody Screen Negative 11/03/24 15:09: WBC 8.6, RBC 4.70, Hgb 12.3, Hct 39.1, MCV 83.2, MCH 26.2 L, MCHC 31.5 L, RDW 17.2, Plt Count 282, MPV 10.5 H, Neut % (Auto) 75.5, Lymph % (Auto) 17.6, Erath % (Auto) 4.8, Eos % (Auto) 0.8, Baso % (Auto) 0.8, Neut # (Auto) 6.5, Lymph # (Auto) 1.5, Erath # (Auto) 0.4, Eos # (Auto) 0.1, Baso # (Auto) 0.1, Sodium 134 L, Potassium 3.7, Chloride 99, Carbon Dioxide 25, Anion Gap 13.7, BUN 5 L, Creatinine 0.50 L, Estimated Creat Clear 131, Estimated GFR 141, Est GFR ( Amer) 171, Glucose 83, Calcium 9.3, Total Bilirubin 0.4, AST 24, ALT 13, Alkaline Phosphatase 77, Total Protein 8.3 H, Albumin 4.7, Globulin 3.6 H, Albumin/Globulin Ratio 1.3, HCG, Quant 6763 H 11/03/24 15:09 11/03/24 15:09 Orders (Tests/Meds): ORDERS Category Date Time Status Type and Screen Stat BBK 11/03/24 15:05 Completed CBC w/Auto Diff [Complete Blood Count Auto Diff] Stat Lab 11/03/24 15:09 Completed CMP [Comprehensive Metabolic Panel] Stat Lab 11/03/24 15:09 Completed HCG,Quantitative Stat Lab 11/03/24 15:09 Completed UA [Urinalysis and Microscopic] Stat Lab 11/03/24 14:36 Completed Urine Culture Stat Micro 11/03/24 14:36 Received US OB transvaginal Stat Ultrasound 11/03/24 14:55 Completed Medical Decision Narrative: In summary, this is a 34-year-old female patient who is currently 18 weeks , who is presenting to the emergency department today for evaluation of vaginal bleeding. Patient's comorbidities include endometriosis and PCOS. I have also reviewed prior OB records which show that the patient has a large cervical polyp that was noted protruding from the cervical os during initial assessment On initial evaluation of the patient they were resting comfortably in no acute distress and nontoxic in appearance. They are hemodynamically stable, saturating well room air, and are neurologically intact. On examination of the patient she appears well-perfused. She does not have any pallor. She has no abdominal tenderness to palpation. Differential diagnosis includes subchorionic hemorrhage, spontaneous , inevitable , hemorrhage from cervical polyp, urinary tract infection, among others. Initial workup to include hematologic labs as well as a transvaginal ultrasound. Labs personally interpreted by me demonstrates no evidence of anemia. I did obtain a quantitative hCG which shows a significant decrease from August in which her hCG was 116,000, and today it is 6700. The patient's urinalysis does show 2+ blood as well as leukocyte esterase and 3+ bacteria. We will ensure that she still has cefdinir to take for asymptomatic bacteriuria of . At the time of shift change this patient's transvaginal ultrasound was pending. This case was handed off to Dr. Tenorio who will follow-up on the result of this transvaginal ultrasound and disposition the patient appropriately. <Dewey Tenorio MD - Last Filed: 11/04/24 01:52> Vital Signs: 11/03/24 14:40 11/03/24 14:47 11/03/24 15:01 Temperature 97.7 F Temperature Source Oral Pulse Rate 87 67 Pulse Rate [Right] 69 Respiratory Rate 19 19 17 Blood Pressure 128/80 Blood Pressure [Right Arm] 125/53 L Blood Pressure Mean 86 Blood Pressure Mean [Right Arm] 77 Blood Pressure Source Blood Pressure Source [Right Arm] Automatic Cuff Blood Pressure Position Blood Pressure Position [Right Arm] Sitting 02 Sat by Pulse Oximetry 100 100 100 Oxygen Delivery Method Room Air Room Air Room Air 11/03/24 15:30 11/03/24 16:28 11/03/24 16:30 Temperature Temperature Source Pulse Rate 64 65 60 Pulse Rate [Right] Respiratory Rate 19 17 19 Blood Pressure 104/74 L 120/81 110/70 Blood Pressure [Right Arm] Blood Pressure Mean 84 92 84 Blood Pressure Mean [Right Arm] Blood Pressure Source Blood Pressure Source [Right Arm] Blood Pressure Position Blood Pressure Position [Right Arm] 02 Sat by Pulse Oximetry 99 100 100 Oxygen Delivery Method Room Air Room Air Room Air 11/03/24 17:00 11/03/24 17:58 Temperature 98.1 F Temperature Source Oral Pulse Rate 65 84 Pulse Rate [Right] Respiratory Rate 17 15 Blood Pressure 119/76 125/75 Blood Pressure [Right Arm] Blood Pressure Mean 89 Blood Pressure Mean [Right Arm] Blood Pressure Source Automatic Cuff Blood Pressure Source [Right Arm] Blood Pressure Position Sitting Blood Pressure Position [Right Arm] 02 Sat by Pulse Oximetry 98 Oxygen Delivery Method Room Air Room Air Lab Data Lab Results 11/03/24 14:36: Urine Color Yellow, Urine Appearance Clear, Urine pH 7.0, Ur Specific [place] <= 1.005, Urine Protein Negative, Urine Glucose (UA) Negative, Urine Ketones Negative, Urine Blood 2+ A, Urine Nitrate Negative, Urine Bilirubin Negative, Urine Urobilinogen 0.2, Ur Leukocyte Esterase 1+ A, Urine WBC 10-20, Ur Squamous Epith Cells 10-20, Urine Bacteria 3+ 11/03/24 15:05: Blood Type A Positive, Antibody Screen Negative 11/03/24 15:09: WBC 8.6, RBC 4.70, Hgb 12.3, Hct 39.1, MCV 83.2, MCH 26.2 L, MCHC 31.5 L, RDW 17.2, Plt Count 282, MPV 10.5 H, Neut % (Auto) 75.5, Lymph % (Auto) 17.6, Erath % (Auto) 4.8, Eos % (Auto) 0.8, Baso % (Auto) 0.8, Neut # (Auto) 6.5, Lymph # (Auto) 1.5, Erath # (Auto) 0.4, Eos # (Auto) 0.1, Baso # (Auto) 0.1, Sodium 134 L, Potassium 3.7, Chloride 99, Carbon Dioxide 25, Anion Gap 13.7, BUN 5 L, Creatinine 0.50 L, Estimated Creat Clear 131, Estimated GFR 141, Est GFR ( Amer) 171, Glucose 83, Calcium 9.3, Total Bilirubin 0.4, AST 24, ALT 13, Alkaline Phosphatase 77, Total Protein 8.3 H, Albumin 4.7, Globulin 3.6 H, Albumin/Globulin Ratio 1.3, HCG, Quant 6763 H Orders (Tests/Meds): ORDERS Category Date Time Status Type and Screen Stat BBK 11/03/24 15:05 Completed CBC w/Auto Diff [Complete Blood Count Auto Diff] Stat Lab 11/03/24 15:09 Completed CMP [Comprehensive Metabolic Panel] Stat Lab 11/03/24 15:09 Completed HCG,Quantitative Stat Lab 11/03/24 15:09 Completed UA [Urinalysis and Microscopic] Stat Lab 11/03/24 14:36 Completed Urine Culture Stat Micro 11/03/24 14:36 Received US OB transvaginal Stat Ultrasound 11/03/24 14:55 Completed Medical Decision Narrative: In summary, this is a 34-year-old female patient who is currently 18 weeks , who is presenting to the emergency department today for evaluation of vaginal bleeding. Patient's comorbidities include endometriosis and PCOS. I have also reviewed prior OB records which show that the patient has a large cervical polyp that was noted protruding from the cervical os during initial assessment On initial evaluation of the patient they were resting comfortably in no acute distress and nontoxic in appearance. They are hemodynamically stable, saturating well room air, and are neurologically intact. On examination of the patient she appears well-perfused. She does not have any pallor. She has no abdominal tenderness to palpation. Differential diagnosis includes subchorionic hemorrhage, spontaneous , inevitable , hemorrhage from cervical polyp, urinary tract infection, among others. Initial workup to include hematologic labs as well as a transvaginal ultrasound. Labs personally interpreted by me demonstrates no evidence of anemia. I did obtain a quantitative hCG which shows a significant decrease from August in which her hCG was 116,000, and today it is 6700. The patient's urinalysis does show 2+ blood as well as leukocyte esterase and 3+ bacteria. We will ensure that she still has cefdinir to take for asymptomatic bacteriuria of . At the time of shift change this patient's transvaginal ultrasound was pending. This case was handed off to Dr. Tenorio who will follow-up on the result of this transvaginal ultrasound and disposition the patient appropriately. Dewey Tenorio MD At the assumption of the patient under my care, patient pending transvaginal ultrasound. On reassessment, patient anxiously wanting to get home. Formal radiology interpretation of ultrasound imaging pending at this time, however on my interpretation, heart rate 150 bpm. No other acute findings noted on my interpretation. Patient would not like to wait for formal ultrasound results at this time. Given there is an appropriate heart rate and patient plans to follow-up with her OB physician over the next few days. Will plan to follow-up ultrasound results and if anything additionally abnormal requiring emergent evaluation, will contact patient and instruct her to return to the emergency department. All questions were answered. She demonstrated understanding and was in agreement this plan. She was then discharged from the emergency department in stable condition with strict return precautions. Ultrasound radiology interpretation is as follows IMPRESSION: 1. Limited study. 2. Single live intrauterine gestation with motion visualized. 3. Normal appearance of the cervix measuring 3.1 cm. 4. Posterior placenta without previa. 5. Anterior uterine contraction. No indication for patient to return to the emergency department at this time. Critical Care <Gabriel Dickey DO - Last Filed: 11/03/24 17:29> Critical Care Time Critical Care Time: No
--- NOTE | 2024-11-05 09:01 | PC.NURSE ---
Urine culture results reviewed by Dr. Mora, no new orders received.
== END 2024-11-03 17:58 | disposition home or self-care (01) ==
PROVIDERS: Emergency Provider Student in an Organized Health Care Education/Training Program; PCP Family Medicine
DX: O99.891 Other specified diseases and conditions complicating pregnancy (principal); O46.90 Antepartum hemorrhage, unspecified, unspecified trimester; Z3A.18 18 weeks gestation of pregnancy
CPT/HCPCS: 76817; 80053; 81001; 84702; 85025; 86850; 87086; 99284

== ENCOUNTER 2024-11-14 13:06 | Outpatient (CLI) | payer MEDICAID, SELFPAY ==
--- NOTE | 2024-11-14 13:00 | US_ITS ---
PROCEDURE: US OB /MATERNAL DETAIL CLINICAL INDICATION: 20 week anatomy scan COMPARISON: US US OB TRANSVAGINAL from 11/03/2024 FINDINGS: Transabdominal sonographic images of the pelvis were obtained. From her established due date she is 20 weeks 1 day. Single viable intrauterine gestation. Breech position. Placenta: Posteriorplacenta grade 1. There is an average amount of fluid. The cervix appears satisfactory. Closed and measuring 3.94 cm in length. Complete survey performed and was unremarkable on the submitted images as in PACS. No discrete anomalies identified on survey imaging by technologist. Active fetus. Three-vessel cord with satisfactory umbilical cord insertion. 4- chamber heart noted. Situs, aortic arch, LVOT, RVOT, three-vessel view appear normal. Survey of brain & ventricles Unremarkable. Cerebellum, thalamus, choroid plexus, cisterna magna appear normal. Face and neck survey unremarkable. Profile, nasion, lips and nose appeared normal. Diaphragm and chest views unremarkable. Abdomen: Both kidneys noted and unremarkable. Stomach and bladder noted and satisfactory. Spine: Survey of the spine satisfactory with no anomalies identified nor imaged. Cervical, thoracic, lower spine appear normal. Both arms and legs noted. Amniotic Fluid: Adequate. MVP 2.94 cm Measurements: Average ultrasound age 20weeks 4days. Estimated due date by ultrasound age 1203/30/2025. Estimated weight 382g BPD = 19weeks 5days HC = 20weeks 0 days AC = 21weeks 3days FL = 20weeks 5days Growth Percentile= 83 Heart Rate = 139bpm Cerebellum = 20weeks Humerus = 21weeks 2days HC/AC is 1.08 FL/BPD is 0.76 FL/AC is 0.21 IMPRESSION: 1. Viable fetus in the breech presentation with a posterior placenta grade 1. 2. The fluid is within normal limits with an MVP 2.94 cm. 3. Anatomical scan appears normal. 4. biometry is consistent with the dates. Dictated by: Mor Madrigal MD 11/14/2024 18:11 Mor Madrigal MD in OV 11/14/2024 18:11
--- OUTSIDE RECORDS SUMMARY | 2024-11-14 13:10 | XMS_ITS | Clinical Summary ---
Author Organization [facility] Address [address] [place] [address] Care Team Providers Care Kettle Cleaner Name Role Phone Unavailable Primary Care Provider [...]
== END 2024-11-14 23:59 | disposition home or self-care (01) ==
LOC: RAD 13:06
PROVIDERS: PCP Family Medicine; Visit Provider Obstetrics & Gynecology
DX: O09.522 Supervision of elderly multigravida, second trimester (principal); O99.332 Smoking (tobacco) complicating pregnancy, second trimester; F17.200 Nicotine dependence, unspecified, uncomplicated; Z3A.20 20 weeks gestation of pregnancy
CPT/HCPCS: 76811

== ENCOUNTER 2024-12-02 15:23 | Outpatient (CLI) | payer MEDICAID, SELFPAY ==
--- OUTSIDE RECORDS SUMMARY | 2024-12-05 12:15 | XMS_ITS | Clinical Summary ---
Author Organization [facility] Address [address] [place] [address] Care Team Providers Care Screw Supervisor Name Role Phone Unavailable Primary Care Provider [...]
== END 2024-12-02 23:59 | disposition home or self-care (01) ==
LOC: LAB.DROPOF 12-05 12:09
PROVIDERS: PCP Obstetrics & Gynecology; Visit Provider Obstetrics & Gynecology
DX: O46.90 Antepartum hemorrhage, unspecified, unspecified trimester (principal); O99.891 Other specified diseases and conditions complicating pregnancy; R82.71 Bacteriuria
CPT/HCPCS: 87086

== ENCOUNTER 2025-01-09 13:14 | Outpatient (CLI) | payer MEDICAID, SELFPAY ==
--- OUTSIDE RECORDS SUMMARY | 2025-01-09 13:17 | XMS_ITS | Clinical Summary ---
Author Organization [facility] Address [address] [place] [address] Care Team Providers Care Bale Opener Name Role Phone Unavailable Primary Care Provider [...]
--- NOTE | 2025-01-09 13:45 | US_ITS ---
PROCEDURE: US OB FOLLOW UP CLINICAL INDICATION: 28 week fgrowth COMPARISON: US US OB /MATERNAL DETAIL from 11/14/2024 FINDINGS: Transabdominal sonographic images of the pelvis were obtained. The following parameters are obtained: From her established due date she is 28weeks 1day Viable fetus in the breech presentation with a posterior placenta grade 1. The cervix measures 1.07cm-1.66 cm transvaginally. No funneling. heart rate: 140bpm bpm. Average ultrasound age 28 weeks 3 days Estimated weight 1240 grams, 2 lb 12 oz BPD: 27weeks 5days, 21 percentile HC: 28weeks 6days, 40 percentile AC: 28weeks 6days, 63 percentile FL: 28weeks 2days, 37 percentile HC/AC: 1.08 FL/BPD: 0.77 FL/AC: 0.22 Growth percentile: 52 Amniotic fluid index: 10.89cm, MVP 3.02 cm No obvious anomalies evident. profile seen, stomach, bladder, kidneys, three-vessel cord, four chamber heart appear normal. IMPRESSION: 1. Viable fetus in the breech presentation with posterior placenta grade 1. 2. The fluid is within normal limits with an amniotic fluid index 10.89 cm, MVP 3.02 cm. 3. There has been good interval growth with the fetus currently 52nd percentile. 4. breathing motion is visualized. 5. The cervix is somewhat foreshortened measuring 1.01-1.66 cm. There was shortening of the cervix with Valsalva. Suggest continued close follow-up of this short cervix. Dictated by: Mor Madrigal MD 01/09/2025 18:40 Mor Madrigal MD in OV 01/09/2025 18:40
== END 2025-01-09 23:59 | disposition home or self-care (01) ==
LOC: RAD 13:15
PROVIDERS: PCP Obstetrics & Gynecology; Visit Provider Obstetrics & Gynecology
DX: O26.873 Cervical shortening, third trimester (principal); O32.1XX0 Maternal care for breech presentation, not applicable or unspecified; O46.93 Antepartum hemorrhage, unspecified, third trimester; O09.523 Supervision of elderly multigravida, third trimester; O99.213 Obesity complicating pregnancy, third trimester; O09.893 Supervision of other high risk pregnancies, third trimester; E66.9 Obesity, unspecified; Z28.39 Other underimmunization status; Z3A.28 28 weeks gestation of pregnancy
CPT/HCPCS: 76816

== ENCOUNTER 2025-01-12 08:39 | Outpatient (CLI) | payer MEDICAID, SELFPAY ==
[2025-01-12 10:06] LABS: Hematocrit 34.4 % (37.0-47.0); Hemoglobin 11.4 g/dL (12.2-16.2); Immature Granulocytes % 1.7 %; Mean Corpuscular HGB Conc 33.1 g/dL (31.8-35.4); Mean Corpuscular Hemoglobin 30.0 pg (27.0-31.2); Mean Corpuscular Volume 90.5 fl (81-99); Nucleated Red Blood Cells % 0 %; Platelet Count 244 K/mm3 (142-424); Red Blood Count 3.80 M/mm3 (4.20-5.40); Red Cell Distribution Width-SD 43.9 fL; White Blood Count 10.3 K/mm3 (4.8-10.8)
[2025-01-12 10:35] LABS: Glucose 1 Hour 107 mg/dL (74-100)
[2025-01-12 11:52] LABS: RPR W/RFX Titers Nonreactive (Nonreactive)
== END 2025-01-12 23:59 | disposition home or self-care (01) ==
LOC: LAB 08:40
PROVIDERS: PCP Family Medicine; Visit Provider Obstetrics & Gynecology
DX: Z34.93 Encounter for supervision of normal pregnancy, unspecified, third trimester (principal); Z3A.00 Weeks of gestation of pregnancy not specified
CPT/HCPCS: 36415; 82947; 85025; 86592

== ENCOUNTER 2025-01-20 09:58 | Outpatient (CLI) | payer MEDICAID, SELFPAY ==
--- OUTSIDE RECORDS SUMMARY | 2025-01-20 10:00 | XMS_ITS | Clinical Summary ---
Author Organization [facility] Address [address] [place] [address] Care Team Providers Care Nutrition Aides Teacher Name Role Phone Unavailable Primary Care Provider [...]
--- NOTE | 2025-01-20 10:15 | CA_ITS ---
FINAL REPORT CLINICAL HISTORY: 7 months , pain and swelling behind left [id number], family history of DVT FINDINGS: DUPLEX VENOUS SONOGRAPHY OF THE LEFT LOWER EXTREMITY Multiple transverse and longitudinal scans were performed of the femoropopliteal deep venous system, with augmentation and compression maneuvers. FINDINGS: Normal phasic flow was noted in the visualized deep venous system. No intraluminal increased echogenicity is noted to suggest thrombus. There is normal compression and augmentation of the venous structures. No abnormal venous collaterals are seen. IMPRESSION: No evidence of deep venous thrombosis of the left lower extremity. Reviewed, Interpreted and Dictated by Lucita Carranza MD Transcribed by Terrie Kinney Authenticated and [facility]
== END 2025-01-20 23:59 | disposition home or self-care (01) ==
LOC: RT 09:59
PROVIDERS: PCP Family Medicine; Visit Provider Obstetrics & Gynecology
DX: Z34.90 Encounter for supervision of normal pregnancy, unspecified, unspecified trimester (principal); M79.605 Pain in left leg; M79.89 Other specified soft tissue disorders; Z82.49 Family history of ischemic heart disease and other diseases of the circulatory system; Z3A.00 Weeks of gestation of pregnancy not specified
CPT/HCPCS: 93971

== ENCOUNTER 2025-01-23 14:47 | Outpatient (CLI) | payer MEDICAID, SELFPAY ==
--- OUTSIDE RECORDS SUMMARY | 2025-01-24 10:09 | XMS_ITS | Clinical Summary ---
Author Organization [facility] Address [address] [place] [address] Care Team Providers Care Geothermal Heat Pump Machinist Name Role Phone Unavailable Primary Care Provider [...]
== END 2025-01-23 23:59 | disposition home or self-care (01) ==
LOC: LAB.DROPOF 01-24 10:03
PROVIDERS: PCP Nurse Practitioner Family; Visit Provider Nurse Practitioner Family
DX: R07.0 Pain in throat (principal)
CPT/HCPCS: 87070

== ENCOUNTER 2025-02-16 16:10 | Outpatient (CLI) | payer MEDICAID, SELFPAY ==
--- OUTSIDE RECORDS SUMMARY | 2025-02-16 16:14 | XMS_ITS | Clinical Summary ---
Author Organization [facility] Address [address] [place] [address] Care Team Providers Care Java Performance Engineer Name Role Phone Unavailable Primary Care Provider [...]
[2025-02-16 16:20] VITALS: BP 133/80; PULSE 82; RESP 18; TEMP 36.7; O2SAT 96; BMI 49.2
== END 2025-02-16 16:44 | disposition home or self-care (01) ==
LOC: OBOUT 16:12 → OB 16:13
PROVIDERS: PCP Nurse Practitioner Family; Visit Provider Obstetrics & Gynecology
DX: O36.8130 Decreased fetal movements, third trimester, not applicable or unspecified (principal); Z3A.33 33 weeks gestation of pregnancy
CPT/HCPCS: 59025; 99212; G0463

== ENCOUNTER 2025-03-02 02:14 | Emergency (ER) | payer MEDICAID, SELFPAY ==
--- OUTSIDE RECORDS SUMMARY | 2025-03-02 02:25 | XMS_ITS | Clinical Summary ---
Author Organization [facility] Address [address] [place] [address] Care Team Providers Care Business Development Director Name Role Phone Unavailable Primary Care Provider [...]
[2025-03-02 02:28] VITALS: BP 160/93; PULSE 77; RESP 16; TEMP 36.7; O2SAT 99; BMI 48.1
--- NOTE | 2025-03-02 02:37 | PC.NURSE ---
FHR obtained by this RN at bedside, FHR [id number]
[2025-03-02 02:42] LABS: Microscopic, Urine URINE MICROSCOPIC (MICROSCOPIC)
--- NOTE | 2025-03-02 02:44 | HMH.EDGENADL ---
Discharge Plan Disposition Patient Disposition: Home, Self-Care Prescriptions Prescriptions: No Action PNV no.95-ferrous fumarate-FA [] 28 mg iron- 800 mcg tablet PO sertraline 25 mg tablet 25 mg PO DAILY Qty: 30 2RF magnesium 200 mg tablet 200 mg PO BID ferrous sulfate [FeroSul] 325 mg (65 mg iron) tablet 325 mg PO DAILY Referrals Follow up/Referrals: Maris Rivas APRN [Primary Care Provider, Family Practice] - See instructions Activity Restrictions/Add. Instructions Additional Instructions/Restrictions: Please follow-up with your BEVEL GEAR GENERATOR OPERATOR as discussed. Recommend taking Tylenol as needed for pain. Clinical Impressions Clinical Impression: Cramps of left lower extremity, Bilateral edema of lower extremity, 35 weeks gestation of Print Language Print Language: Pashto Discharge ED Provider: Jose Slade Adult HPI General Chief complaint: PAIN Stated complaint: leg pain, swelling, cramps Time Seen by Provider: 03/02/25 02:20 Mode of Arrival: Ambulatory Source of Information: Patient Description of Symptoms (Recalled from ER Triage Doc. by RN): Patient reports bilateral lower extremity swelling and cramping in the left leg from thigh to ankle; [id number] History of Present Illness HPI narrative: 35-year-old female, at 35 weeks and 5 days , presents for bilateral lower extremity swelling and cramping in the left leg today. She reports that the swelling has been slowly worsening and is worse than her previous pregnancies. The cramping started earlier today and is present in the calf and the thigh. She reports no other issues with this , denies any headaches, vision changes, denies any urinary symptoms. She has had no issues with blood pressure. Related Data Home Medications ?Medication ?Instructions ?Recorded ?Confirmed vit no.95-ferrous tab PO 10/03/24 02/27/25 fumarate 28 mg-folic acid 800 mcg tablet () magnesium 200 mg tablet 200 mg PO BID 10/17/24 02/27/25 ferrous sulfate 325 mg (65 mg 325 mg PO DAILY 01/19/25 02/27/25 iron) tablet (FeroSul) Previous Rx's ?Medication ?Instructions ?Recorded sertraline 25 mg tablet 25 mg PO DAILY #30 tabs 02/02/25 Allergies Allergy/AdvReac Type Severity Reaction Status Date / Time nitrofurantoin Allergy Intermediate Hives Verified 02/27/25 15:27 [facility] Disclaimer: The information contained in this section may have been updated after the patient was seen, as this information can be updated by other users. Medical History Popliteal pain left Short cervix in third trimester, antepartum Cramping affecting , antepartum Maternal obesity affecting , antepartum Blurry vision, bilateral Headache Rubella non-immune status, antepartum Nausea/vomiting in Polyp at cervical os AMA (advanced maternal age) multigravida 35+ Tobacco use affecting , antepartum Patient desires Urinary tract infection History of COVID-19 Edema Bleeding after intercourse History of endometriosis PCOS (polycystic ovarian syndrome) Dyspareunia in female Dysmenorrhea Pelvic pain Abnormal uterine bleeding Heavy menstrual bleeding Vitamin D deficiency Iron deficiency anemia RLS (restless legs syndrome) Restless legs syndrome Anxiety Hypothyroidism Surgical History History of cholecystectomy Family History Grandmother Heart attack Hypertension Stroke Grandfather Hypertension Stroke Social History Smoking Status: Never smoker alcohol intake: never substance use type: denies use current occupational status: employed Travel in the last 8 weeks?: None current occupation: [employer] ([employer]) caffeine: Yes Have you lived/traveled outside US in past 30 days?: No Contact w/someone who lives/traveled outside US past 30 days?: No Exposure to someone with infectious disease in past 14 days?: No Do you have a fever (greater than 100.4 F or 38 C)?: No Have you tested positive for COVID-19?: No Exposed to someone with COVID-19 in past 14 days?: No Do you have a sore throat?: No Do you have a cough?: No Do you have any weakness?: No Do you have any diarrhea?: No Are you experiencing any unusual bleeding?: No Do you have any muscle aches/pain?: No Do you have any abdominal pain?: No Are you experiencing loss of taste or smell?: No Other Medical History Have you received the Flu Vaccine for this season: No Have you received the Pneumonia Vaccine: No ROS Obtained: Yes All systems reviewed & no additional complaints except as documented Physical Exam General General appearance: alert and in no apparent distress Head Head exam: atraumatic and normocephalic Eye Eye exam: Present normal appearance, PERRL and EOMI ENT ENT exam: Present normal oropharynx and normal external ear exam Neck Neck exam: Present normal inspection and full ROM Chest Chest inspection: Present normal inspection and symmetric chest wall rise; Absent tenderness Respiratory Respiratory exam: Present normal lung sounds bilaterally; Absent respiratory distress Cardiovascular Cardiovascular exam: Present regular rate and normal rhythm Abdominal Exam Abdominal exam: Present soft and distention (Gravid abdomen); Absent tenderness or guarding Extremities Exam Extremities exam: Present normal inspection and edema (Bilateral lower extremity pitting edema, equal bilaterally.); Absent joint swelling Back Exam Back exam: Present normal inspection; Absent tenderness Neurological Exam Neurological exam: Present alert and oriented X3; Absent motor sensory deficit Psychiatric Psychiatric exam: Present normal affect and normal mood Skin Skin exam: Present warm, dry and normal color Lymphatic Lymphatic Findings: no adenopathy Medical Decision Making Medical Records Medical records reviewed: Yes I reviewed the patient's medical records. Screening: Per USPSTF and CDC recommendations, given the prevalence of disease in our region, it is our hospital?s policy to screen for HIV and viral Hepatitis for all patients aged 18 and over and those with ongoing risk factors. Mau Inquiry Pt receiving controlled substance: No Mau was queried for this patient: No Vital Signs: 03/02/25 02:28 03/02/25 03:01 03/02/25 03:33 Temperature 98.1 F Temperature Source Oral Pulse Rate 72 75 Pulse Rate [Right Radial] 77 Respiratory Rate 16 Blood Pressure 131/73 125/84 Blood Pressure [Right Arm] 160/93 H Blood Pressure Mean 99 Blood Pressure Mean [Right Arm] 115 Blood Pressure Source [Right Arm] Automatic Cuff Blood Pressure Position [Right Arm] Supine 02 Sat by Pulse Oximetry 99 99 97 Oxygen Delivery Method Room Air Lab Data Lab results reviewed: Yes I reviewed the patient's lab results. Lab Results 03/02/25 02:23: Urine Color Yellow, Urine Appearance Clear, Urine pH 6.0, Ur Specific [place] 1.025, Urine Protein Negative, Urine Glucose (UA) Negative, Urine Ketones Negative, Urine Blood Negative, Urine Nitrate Negative, Urine Bilirubin Negative, Urine Urobilinogen 0.2, Ur Leukocyte Esterase 3+ A, Urine WBC 10-20, Urine Bacteria Trace 03/02/25 02:53: WBC 10.2, RBC 4.03 L, Hgb 11.9 L, Hct 36.0 L, MCV 89.3, MCH 29.5, MCHC 33.1, RDW 12.7, Plt Count 288, MPV 10.1, Neut % (Auto) 70.4, Lymph % (Auto) 20.0, Cole % (Auto) 6.6, Eos % (Auto) 1.4, Baso % (Auto) 0.5, Neut # (Auto) 7.2, Lymph # (Auto) 2.0, Cole # (Auto) 0.7, Eos # (Auto) 0.1, Baso # (Auto) 0.1, Sodium 136, Potassium 4.0, Chloride 102, Carbon Dioxide 28, Anion Gap 10.0, BUN 8, Creatinine 0.50 L, Estimated Creat Clear 141, Estimated GFR 140, Est GFR ( Amer) 170, Glucose 105 H, Calcium 8.6, Magnesium 1.8, Total Bilirubin 0.6, AST 25, ALT 9 L, Alkaline Phosphatase 91, NT-Pro-B Natriuret Pep 61.3, Total Protein 7.1, Albumin 4.6, Globulin 2.5, Albumin/Globulin Ratio 1.8 03/02/25 02:53 03/02/25 02:53 Orders (Tests/Meds): ORDERS Category Date Time Status POCUS Point of Care (ER Only) Stat Exams 03/02/25 03:46 Ordered BNP [NT Pro Brain Natriuretic Pep.] Stat Lab 03/02/25 02:53 Completed CBC w/Auto Diff [Complete Blood Count Auto Diff] Stat Lab 03/02/25 02:53 Completed CMP [Comprehensive Metabolic Panel] Stat Lab 03/02/25 02:53 Completed Magnesium Stat Lab 03/02/25 02:53 Completed UA [Urinalysis and Microscopic] Stat Lab 03/02/25 02:23 Completed Urine Culture Stat Micro 03/02/25 02:23 Received Medical Decision Narrative: 35-year-old female at 35 weeks presents for left leg cramping and bilateral lower extremity edema for. History was obtained via interactive discussion with patient. On arrival, patient is hypertensive with systolic of 160 on initial check. Full physical exam performed and significant for bilateral lower extremity pitting edema, no unilateral findings such as erythema or circumferential swelling. Differential includes but is not limited to preeclampsia, gestational hypertension, DVT, electrolyte derangement. On next blood pressure check, blood pressures in the 130s systolic, after that it was in the 120s systolic. Workup initiated including CBC CMP UA ultrasound of left lower extremity to assess for DVT. On re-evaluation, patient remains normotensive. Laboratory workup independently interpreted by me and significant for no renal dysfunction, no elevation in LFTs, no significant electrolyte derangement, no leukocytosis. Urinalysis without bacteria, though does have WBCs.. Imaging independently interpreted by me and significant for compressible veins on bedside DVT ultrasound. See radiology read for full review of final results. Admission for blood pressure management was considered, but deemed unnecessary due to only 1 isolated elevated blood pressure reading. Given patient history, exam and workup, patient's presentation most likely represents musculoskeletal cramping and bilateral lower extremity edema in the setting of late . Physical exam did not show any signs of DVT, nor did bedside ultrasound. Recommended patient take Tylenol as needed for pain control and to call and talk with her BEVEL GEAR GENERATOR OPERATOR. Recommend she strictly monitor her blood pressure. Return precautions given. Procedures Risk/Benefits of Procedure(s) Were Explained: Yes Limited Ultrasound Indication:: Limited DVT ultrasound Indication: Limited compression ultrasonography of the left lower extremity was performed to evaluate for non-compressibility of the deep veins in the patient. The ultrasound was performed with the following indications, as noted in the H&P: Left leg pain Identified structures: Left [common femoral vein, femoral vein, popliteal vein were examined.] Findings: Lower Extremity: Left CFV: Good compressibility Left FV good compressibility Left Popliteal vein: Good compressibility Impression: Normal, no evidence of DVT in the imaged left lower extremity Images were to permanent archive The study was technically adequate [id number] This study was performed by me, Dr. Slade, and I personally interpreted all images/videos. Based on my clinical judgement, these images were adequate and did not necessitate further imaging. Critical Care Critical Care Time Critical Care Time: No
[2025-03-02 02:50] LABS: Bilirubin,Urine Negative (Negative); Color,Urine YELLOW (Yellow); Glucose,Urine (UA) Negative (Negative); Ketones,Urine Negative (Negative); Leukocyte Esterase,Urine 3+ (Negative); PH,Urine 6.0 (5.0-8.5); Protein,Urine Negative (Negative); Specific Gravity, Urine 1.025 (1.005-1.030); Urobilinogen,Urine 0.2 EU/dl (0.2)
[2025-03-02 03:01] VITALS: BP 131/73; PULSE 72; O2SAT 99
[2025-03-02 03:02] LABS: Hematocrit 36.0 % (37.0-47.0); Hemoglobin 11.9 g/dL (12.2-16.2); Immature Granulocytes % 1.1 %; Mean Corpuscular HGB Conc 33.1 g/dL (31.8-35.4); Mean Corpuscular Hemoglobin 29.5 pg (27.0-31.2); Mean Corpuscular Volume 89.3 fl (81-99); Nucleated Red Blood Cells % 0 %; Platelet Count 288 K/mm3 (142-424); Red Blood Count 4.03 M/mm3 (4.20-5.40); Red Cell Distribution Width-SD 41.0 fL; White Blood Count 10.2 K/mm3 (4.8-10.8)
[2025-03-02 03:06] LABS: Albumin Level 4.6 g/dl (3.5-5.0); Chloride 102 mmol/L (98-107)
[2025-03-02 03:07] LABS: Potassium 4.0 mmoL/L (3.5-5.1); Sodium 136 mmol/L (136-145)
[2025-03-02 03:08] LABS: Bacteria,Urine Trace /lpf
[2025-03-02 03:09] LABS: Alanine Aminotransferase 9 U/L (12-78); Alkaline Phosphatase 91 U/L (38-126); Anion Gap 10.0 mEq/L (5-15); Aspartate Amino Transferase 25 U/L (14-36); Bilirubin,Total 0.6 mg/dl (0.2-1.3); Blood Urea Nitrogen 8 mg/dl (7-17); Carbon Dioxide 28 mmol/L (22.0-30.0); Creatinine Clearance Estimated 141 mL/min (50-200); Creatinine,Serum 0.50 mg/dl (0.52-1.04); Estimated Glomerular Filt Rate 140 ml/min (>60); GFR (African American) 170 ML/MIN (>60)
[2025-03-02 03:10] LABS: Albumin/Globulin Ratio 1.8 (1.1-1.8); Calcium 8.6 mg/dl (8.4-10.2); Globulin 2.5 g/dL (1.3-3.2); Glucose 105 mg/dl (74-100); Magnesium 1.8 mg/dl (1.6-2.3); Total Protein,Serum 7.1 g/dl (6.3-8.2)
[2025-03-02 03:19] LABS: NT Pro Brain Natriuretic Pep. 61.3 pg/mL (0-125)
[2025-03-02 03:33] VITALS: BP 125/84; PULSE 75; O2SAT 97
[2025-03-02 04:01] VITALS: BP 124/72; PULSE 74; RESP 16; TEMP 36.6; O2SAT 98
== END 2025-03-02 04:04 | disposition home or self-care (01) ==
PROVIDERS: Emergency Provider Emergency Medicine; PCP Nurse Practitioner Family
DX: O26.893 Other specified pregnancy related conditions, third trimester (principal); R25.2 Cramp and spasm; R60.0 Localized edema; Z3A.35 35 weeks gestation of pregnancy
CPT/HCPCS: 80053; 81001; 83735; 83880; 85025; 87086; 99283; 99284

== ENCOUNTER 2025-03-10 09:58 | Outpatient (CLI) | payer MEDICAID, SELFPAY | END 2025-03-10 23:59 | disposition home or self-care (01) | LOC: LAB.DROPOF 03-11 09:59 | PROVIDERS: PCP Nurse Practitioner Family; Visit Provider Obstetrics & Gynecology | DX: O26.873 Cervical shortening, third trimester (principal); O99.891 Other specified diseases and conditions complicating pregnancy; O99.213 Obesity complicating pregnancy, third trimester; O09.523 Supervision of elderly multigravida, third trimester; E66.9 Obesity, unspecified; R82.71 Bacteriuria; Z3A.00 Weeks of gestation of pregnancy not specified | CPT/HCPCS: 86403 ==

== ENCOUNTER 2025-03-12 21:44 | Inpatient (IN) | payer MEDICAID, SELFPAY ==
--- OUTSIDE RECORDS SUMMARY | 2025-03-12 20:11 | XMS_ITS | Clinical Summary ---
Author Organization [facility] Address [address] [place] [address] Care Team Providers Care Overage Shortage And Damage Clerk Name Role Phone Unavailable Primary Care [...]
[2025-03-12 20:14] VITALS: BMI 48.2
[2025-03-12 20:20] VITALS: BP 143/77; PULSE 73; RESP 20; TEMP 36.8; O2SAT 100; BMI 48.3
[2025-03-12 20:30] VITALS: BP 145/85
[2025-03-12 20:38] LABS: Microscopic, Urine URINE MICROSCOPIC (MICROSCOPIC)
[2025-03-12 20:42] LABS: Bilirubin,Urine Negative (Negative); Color,Urine YELLOW (Yellow); Glucose,Urine (UA) Negative (Negative); Ketones,Urine Negative (Negative); Leukocyte Esterase,Urine 1+ (Negative); PH,Urine 6.5 (5.0-8.5); Protein,Urine Negative (Negative); Specific Gravity, Urine <= 1.005 (1.005-1.030); Urobilinogen,Urine 0.2 EU/dl (0.2)
[2025-03-12 20:45] VITALS: BP 154/83
[2025-03-12 20:50] LABS: Fetal Membrane Rupture (Rapid) Negative (Negative)
[2025-03-12 20:57] LABS: Bacteria,Urine 3+ /lpf
[2025-03-12 21:00] VITALS: BP 135/87
[2025-03-12 22:26] LABS: Hematocrit 34.6 % (37.0-47.0); Hemoglobin 11.7 g/dL (12.2-16.2); Immature Granulocytes % 0.7 %; Mean Corpuscular HGB Conc 33.8 g/dL (31.8-35.4); Mean Corpuscular Hemoglobin 29.8 pg (27.0-31.2); Mean Corpuscular Volume 88.3 fl (81-99); Nucleated Red Blood Cells % 0 %; Platelet Count 261 K/mm3 (142-424); Red Blood Count 3.92 M/mm3 (4.20-5.40); Red Cell Distribution Width-SD 40.7 fL; White Blood Count 11.3 K/mm3 (4.8-10.8)
[2025-03-12 22:33] LABS: Albumin Level 4.1 g/dl (3.5-5.0); Chloride 101 mmol/L (98-107)
[2025-03-12 22:34] LABS: Potassium 3.7 mmoL/L (3.5-5.1); Sodium 134 mmol/L (136-145)
[2025-03-12 22:36] LABS: Alanine Aminotransferase 15 U/L (12-78); Albumin/Globulin Ratio 1.3 (1.1-1.8); Alkaline Phosphatase 94 U/L (38-126); Anion Gap 9.7 mEq/L (5-15); Aspartate Amino Transferase 22 U/L (14-36); Bilirubin,Total 0.3 mg/dl (0.2-1.3); Blood Urea Nitrogen 6 mg/dl (7-17); Carbon Dioxide 27 mmol/L (22.0-30.0); Creatinine Clearance Estimated 113 mL/min (50-200); Creatinine,Serum 0.60 mg/dl (0.52-1.04); Estimated Glomerular Filt Rate 114 ml/min (>60); GFR (African American) 138 ML/MIN (>60); Globulin 3.2 g/dL (1.3-3.2); Total Protein,Serum 7.3 g/dl (6.3-8.2)
[2025-03-12 22:37] LABS: Calcium 8.9 mg/dl (8.4-10.2); Glucose 88 mg/dl (74-100)
[2025-03-12 22:51] LABS: Uric Acid 4.8 mg/dl (2.5-6.2)
[2025-03-12] MEDS: AMPICILLIN SODIUM 2 GM in 0.9 % SODIUM CHLORIDE 100 ML IV (23:05)
[2025-03-13] MEDS: ACETAMINOPHEN 500MG TAB 1000 MG PO ×3 (01:09→19:02)
[2025-03-13 01:20] LABS: Activated Partial Thrombo Time 23.3 seconds (22.8-30.6); Fibrinogen 444 mg/dL (229.9-363.5); INR 0.90 (0.9-1.1); Prothrombin Time 10.1 seconds (10.1-12.5)
[2025-03-13] MEDS: AMPICILLIN SODIUM 1 GM in 0.9 % SODIUM CHLORIDE 50 ML IV ×2 (03:05→06:39)
[2025-03-13 03:53] VITALS: BP 120/62; PULSE 67; RESP 18; TEMP 36.8; O2SAT 100
[2025-03-13] MEDS: LACTATED RINGERS 1000ML 1,000 ML 500 ML IV (04:43)
[2025-03-13] MEDS: LACTATED RINGERS 1000ML 1,000 ML 999 ML IV (05:53)
--- NOTE | 2025-03-13 06:27 | EXP.ANES.CKL ---
[facility] Disclaimer: The information contained in this section may have been updated after the patient was seen, as this information can be updated by other users. Medical History Popliteal pain left Short cervix in third trimester, antepartum Cramping affecting , antepartum Maternal obesity affecting , antepartum Blurry vision, bilateral Headache Rubella non-immune status, antepartum Nausea/vomiting in Polyp at cervical os AMA (advanced maternal age) multigravida 35+ Tobacco use affecting , antepartum Patient desires Urinary tract infection History of COVID-19 Edema Bleeding after intercourse History of endometriosis PCOS (polycystic ovarian syndrome) Dyspareunia in female Dysmenorrhea Pelvic pain Abnormal uterine bleeding Heavy menstrual bleeding Vitamin D deficiency Iron deficiency anemia RLS (restless legs syndrome) Restless legs syndrome Anxiety Hypothyroidism Surgical History History of cholecystectomy Family History Grandmother Heart attack Hypertension Stroke Grandfather Hypertension Stroke Social History (Updated 03/12/25 @ 23:19 by Rosa Rutledge RN) Smoking Status: Never smoker alcohol intake: never substance use type: denies use current occupational status: employed Travel in the last 8 weeks?: None current occupation: [employer] ([employer]) caffeine: Yes Have you lived/traveled outside US in past 30 days?: No Contact w/someone who lives/traveled outside US past 30 days?: No Exposure to someone with infectious disease in past 14 days?: No Do you have a fever (greater than 100.4 F or 38 C)?: No Have you tested positive for COVID-19?: No Exposed to someone with COVID-19 in past 14 days?: No Do you have a sore throat?: No Do you have a cough?: No Do you have any weakness?: No Are you experiencing any nausea/vomitting?: No Do you have any diarrhea?: No Are you experiencing any unusual bleeding?: No Do you have any muscle aches/pain?: No Do you have any abdominal pain?: No Are you experiencing loss of taste or smell?: No [facility] Anesthesia Checklist Patient Identification Patient Identification: Arm Band Structural Data Admitted From: Inpatient Planned Operative Procedure/s: Labor Epidural Consent for Planned Operative Procedure(s) Verified: Yes Verified Documents: Surgical Consent and History and Physical Additional verifications Anesthesia Reactions: No Neurological Assessment Level of Consciousness: Awake, Alert and Appropriate Anesthesia Plan Anesthesia Risk discussed: Yes Anesthesia Plan: Verified ASA Class: II Anesthesia Type: Epidural
[2025-03-13] MEDS: ePHEDrine SULF 50MG/ML VIAL 10 MG IV (06:50)
[2025-03-13] MEDS: ONDANSETRON 4MG/2ML VIAL 4 MG IV (07:04)
[2025-03-13] MEDS: ALUMINUM/MAGNESIUM/SIMETHICONE 30ML UDC 30 ML PO (07:10)
[2025-03-13] MEDS: DEXTROSE 5%-LACTATED RINGERS 1,000 ML 125 ML IV (07:32)
--- NOTE | 2025-03-13 07:36 | P.HP_ITS ---
OB - H&P: HPI Antepartum History of Present Illness Chief complaint: Increased pelvic pressure, pain History of present illness: Mrs Karissa Ceballos is a 35 yo at 37w1d who presented to [facility] L&D on 03/12 with complaint of increased pelvic pressure and pain that started around 1900 on 03/12. She reported feeling more wet and unsure if her water broke. Amnisure was negative. Cervical exam by RN was 5/80/-2. Repeat cervical exam 3 hours later was stretchy 6 cm/80/-2. No vaginal bleeding. Baby is very active. She has had good care. complicated by maternal obesity, AMA and tobacco use. GBS pending. History of Present Criteria for establishing EDC:: based on 1st trimester US only care: good care Ultrasounds: normal mid trimester US Obstetrical complications: none Medical complications: none Labs Blood type: A (+) positive Rubella: nonimmune RPR/VDRL: nonreactive GBS status: unknown (pending) HBsAG: negative PFSH PFSH Disclaimer: The information contained in this section may have been updated after the patient was seen, as this information can be updated by other users. Medical History (Updated 03/13/25 @ 07:49 by Zonia Kennedy DO) Active labor at term Popliteal pain Short cervix in third trimester, antepartum Cramping affecting , antepartum Maternal obesity affecting , antepartum Blurry vision, bilateral Headache Rubella non-immune status, antepartum Nausea/vomiting in Polyp at cervical os AMA (advanced maternal age) multigravida 35+ Tobacco use affecting , antepartum Patient desires Urinary tract infection History of COVID-19 Edema Bleeding after intercourse History of endometriosis PCOS (polycystic ovarian syndrome) Dyspareunia in female Dysmenorrhea Pelvic pain Abnormal uterine bleeding Heavy menstrual bleeding Vitamin D deficiency Iron deficiency anemia RLS (restless legs syndrome) Restless legs syndrome Anxiety Hypothyroidism Surgical History History of cholecystectomy Family History Grandmother Heart attack Hypertension Stroke Grandfather Hypertension Stroke Social History (Updated 03/12/25 @ 23:19 by Rosa Rutledge RN) Smoking Status: Never smoker alcohol intake: never substance use type: denies use current occupational status: employed Travel in the last 8 weeks?: None current occupation: [employer]) caffeine: Yes Have you lived/traveled outside US in past 30 days?: No Contact w/someone who lives/traveled outside US past 30 days?: No Exposure to someone with infectious disease in past 14 days?: No Do you have a fever (greater than 100.4 F or 38 C)?: No Have you tested positive for COVID-19?: No Exposed to someone with COVID-19 in past 14 days?: No Do you have a sore throat?: No Do you have a cough?: No Do you have any weakness?: No Are you experiencing any nausea/vomitting?: No Do you have any diarrhea?: No Are you experiencing any unusual bleeding?: No Do you have any muscle aches/pain?: No Do you have any abdominal pain?: No Are you experiencing loss of taste or smell?: No Other Medical History Have you received the Flu Vaccine for this season: No Have you received the Pneumonia Vaccine: No Review of Systems Review of Systems Review of systems:: pertinent systems reviewed and negative unless documented below *Genitourinary Comments: + pelvic pressure, contractions Meds Home Medications and Allergies Home Medications ?Medication ?Instructions ?Recorded ?Confirmed ?Type vit no.95-ferrous 1 tab PO DAILY 10/03/24 History fumarate 28 mg-folic acid 800 mcg tablet () magnesium 200 mg tablet 200 mg PO BID 10/17/2403/12 History ferrous sulfate 325 mg (65 mg 325 mg PO DAILY 01/19/25 03/12/25 History iron) tablet (FeroSul) sertraline 25 mg tablet 25 mg PO DAILY #30 tabs 10/0 01/1903/12/25 Rx New Prescriptions to Start Prescriptions: Allergies Allergy/AdvReac Type Severity Reaction Status Date / Time nitrofurantoin Allergy Intermediate Hives Verified 03/12/25 23:11 OB - H&P: Exam Physical Exam Vital signs: Temp Pulse Resp BP Pulse Ox O2 Del Method 98.2 F 67 18 120/62 100 Room Air 03/13/25 03:53 03/13/25 03:53 03/13/25 03:53 03/13/25 03:53 03/13/25 03:53 03/13/25 03:53 Constitutional no acute distress, obese and cooperative Routine HEENT Exam Head: Present normocephalic and atraumatic Eye: Absent conjunctivae pink ENT: Present mucous membranes moist Routine Neck Exam Present full ROM Routine Respiratory Exam Present CTA bilaterally and normal respiratory effort Routine Cardiovascular Exam Present RRR Routine Abdominal Exam Present soft (Gravid); Absent tenderness Routine Rectal Exam Patient deferred: visual exam Routine Exam External: Present normal urethra appearance; Absent erythema, swelling, tendern ess, ecchymosis or lacerations Routine Extremities Exam Present edema (+2 bilateral lower extremity edema) and full ROM; Absent calf tenderness Routine Neurological Exam Present alert, moving all extremities and normal speech Routine Psychiatric Exam Present normal affect and cooperative Detailed Labor and Delivery Exam Dilation (cm): 7 Effacement (%): 80 Cervix position: mid station: -2 Consistency: soft Membranes: artificially ruptured Amniotic fluid: thin meconium Baseline heart rate: 125 monitor accelerations: Present monitor decelerations: None MCFP variability: Moderate (11-25) Tachysystole: No OB - Results Labs Labs: Short CBC 03/12/25 Range/Units 22:12 WBC 11.3 H (4.8-10.8) K/mm3 Hgb 11.7 L (12.2-16.2) g/dL Hct 34.6 L (37.0-47.0) % Plt Count 261 (142-424) K/mm3 BMP 03/12/25 22:12 Sodium 134 L Potassium 3.7 Chloride 101 Carbon Dioxide 27 BUN 6 L Creatinine 0.60 Glucose 88 Calcium 8.9 Liver Function 03/12/25 Range/Units 22:12 Total Bilirubin 0.3 (0.2-1.3) mg/dl AST 22 (14-36) U/L ALT 15 (12-78) U/L Alkaline Phosphatase 94 (38-126) U/L Albumin 4.1 (3.5-5.0) g/dl Urine 03/12/25 Range/Units 20:15 Urine Color Yellow (Yellow) Urine Appearance Clear (Clear) Urine pH 6.5 (5.0-8.5) Ur Specific [place] <= 1.005 (1.005-1.030) Urine Protein Negative (Negative) Urine Glucose (UA) Negative (Negative) OB - A/P Antepartum (1) Active labor at term: Status: Acute (2) Maternal obesity affecting , antepartum: Status: Acute (3) AMA (advanced maternal age) multigravida 35+: Status: Acute (4) Tobacco use affecting , antepartum: Status: Acute (5) Rubella non-immune status, antepartum: Status: Acute (6) Anxiety: Status: Chronic Additional Plan Planning to breastfeed?: Yes Additional Information:: Admit to [facility] for active labor GBS pending.. Ampicillin started for GBS prophylaxis Augment with Pitocin if needed Epidural in place Close monitoring Anticipate vaginal delivery
--- NOTE | 2025-03-13 07:39 | P.CONPHA_ITS ---
Pharmacy Intervention Comments: MEDICATION RECONCILIATION COMPLETED ON PATIENT USING EXTERNAL FILL HISTORY FROM PHARMACY AND LSIT FROM DIRECTOR OF FRONT OFFICE OFFICE. -NEY ANANDD
--- NOTE | 2025-03-13 07:39 | HMH.PHAINT1 ---
Pharmacy Intervention Comments: MEDICATION RECONCILIATION COMPLETED ON PATIENT USING EXTERNAL FILL HISTORY FROM PHARMACY AND LSIT FROM [facility] OFFICE. -NEY ANANDD
[2025-03-13] MEDS: OXYTOCIN/RINGERS LACTATE 30 UNITS/500 ML BAG IV (07:58)
--- NOTE | 2025-03-13 08:19 | HMH.PHAAMS2 ---
- Antimicrobial Stewardship Review culture & sensitivity review Stewardship interventions: culture & sensitivity review Comments: AMPICILLIN STARTED FOR GBS PROPHYLAXIS BY PROVIDER, VAGINAL CX FOR GBS PENDING AT THIS TIME.
[2025-03-13 09:22] LABS: Microscopic, Urine URINE MICROSCOPIC (MICROSCOPIC)
[2025-03-13 09:29] LABS: Bilirubin,Urine Negative (Negative); Color,Urine YELLOW (Yellow); Glucose,Urine (UA) Negative (Negative); Ketones,Urine Negative (Negative); Leukocyte Esterase,Urine Negative (Negative); PH,Urine 7.0 (5.0-8.5); Protein,Urine TRACE (Negative); Specific Gravity, Urine 1.015 (1.005-1.030); Urobilinogen,Urine 0.2 EU/dl (0.2)
[2025-03-13 09:54] VITALS: TEMP 36.5
[2025-03-13] MEDS: OXYTOCIN/RINGERS LACTATE 30 UNITS/500 ML BAG 999 UNITS IV (11:07)
[2025-03-13] MEDS: BENZOCAINE-MENTHOL SPRAY 56GM CAN TP (11:30)
--- NOTE | 2025-03-13 11:32 | EXP.DN ---
Delivery Note Delivery Date:: 03/13/25 Delivery Time:: 11:03 Anesthesia Type: Epidural Was labor medically induced?: No Induction method: none Gestational age (weeks): 37 Infant delivered prior to 39 weeks?: Yes Justification for early elective delivery:: Active Labor Gender: Female at 1 minute: 6 at 5 minutes: 7 LAC or MLE?: LAC Delivery Procedure:: Mom complete with epidural. Pushed for approximately 9 minutes. Head delivered spontaneously over intact perineum in OT position. Nuchal cord x 1 easily reduced. Anterior shoulder delivered with gentle downward pressure. Posterior shoulder and remainder of body delivered spontaneously. Baby placed on maternal abdomen, mouth and nares bulb suctioned, warmed/dried and stimulated. Delayed cord clamping was performed for 60 seconds. Cord was clamped and cut by father of baby. Cord blood was obtained. Placenta delivered spontaneously and intact. Placenta will be sent to pathology for review. Second degree perineal laceration repaired with 3-0 Vicryl. Hemostasis noted. Baby was taken to warmer to be evaluated by pediatric staff. Mom and baby were doing well after delivery. Live female baby (baby's name is Cristiane) APGARs 6 (1 min), 7 (5 min) EBL 100 mL Placental Delivery Description: Spontaneous
[2025-03-13 11:54] LABS: Bacteria,Urine Trace /lpf; WBC,Urine Occasional #/hpf (0-3)
[2025-03-13 14:03] LABS: RPR W/RFX Titers Nonreactive (Nonreactive)
[2025-03-13 16:13] VITALS: BP 117/63; PULSE 93; RESP 15; TEMP 36.8; O2SAT 100
[2025-03-13] MEDS: IBUPROFEN 400 MG TABLET 800 MG PO (17:01)
[2025-03-13] MEDS: PRENATAL MULTIVITAMIN W/IRON 1 EACH PO (17:01)
[2025-03-13 18:29] LABS: Hemoglobin A1C 5.0 % (4.0-6.0)
[2025-03-13 20:10] VITALS: BP 109/68; PULSE 68; RESP 18; TEMP 36.6; O2SAT 98
[2025-03-14] MEDS: IBUPROFEN 400 MG TABLET 800 MG PO ×3 (01:05→16:56)
[2025-03-14] MEDS: ACETAMINOPHEN 500MG TAB 1000 MG PO ×2 (04:08→15:27)
[2025-03-14 05:42] LABS: Hematocrit 30.6 % (37.0-47.0); Hemoglobin 10.4 g/dL (12.2-16.2); Immature Granulocytes % 0.5 %; Mean Corpuscular HGB Conc 34.0 g/dL (31.8-35.4); Mean Corpuscular Hemoglobin 30.2 pg (27.0-31.2); Mean Corpuscular Volume 89.0 fl (81-99); Nucleated Red Blood Cells % 0 %; Platelet Count 210 K/mm3 (142-424); Red Blood Count 3.44 M/mm3 (4.20-5.40); Red Cell Distribution Width-SD 41.4 fL; White Blood Count 12.0 K/mm3 (4.8-10.8)
[2025-03-14 09:09] VITALS: BP 105/66; PULSE 75; RESP 18; TEMP 36.5; O2SAT 98
[2025-03-14] MEDS: MAGNESIUM OXIDE 400MG TABLET 400 MG PO (09:11)
[2025-03-14] MEDS: SERTRALINE 50MG TABLET 25 MG PO (09:11)
[2025-03-14] MEDS: OXYCODONE 5MG IMMEDIATE RELEASE TABLET 5 MG PO (17:52)
--- NOTE | 2025-03-14 21:47 | PC.NURSE ---
Addendum entered by Kathy Sharma RN 03/14/25 22:46: pt up sitting in chair at bs, feeding baby. Original Note: pt and baby doing well since coming onto shift. pts bleeding is minimal and pain is now controlled since receiving pain meds on the prior shift. +2 pitting edema to ble. feet propped up no needs at this time
[2025-03-15] MEDS: ACETAMINOPHEN 500MG TAB 1000 MG PO (00:39)
[2025-03-15] MEDS: IBUPROFEN 400 MG TABLET 800 MG PO ×2 (01:13→08:20)
[2025-03-15] MEDS: PRENATAL MULTIVITAMIN W/IRON 1 EACH PO (08:08)
[2025-03-15 08:29] VITALS: BP 131/72; PULSE 80; RESP 20; TEMP 36.5; O2SAT 98
--- NOTE | 2025-03-15 09:52 | P.DS_ITS ---
General Admission date:: 03/12/25 Discharge date: 03/15/25 HPI HPI HPI: PPD # 2 s/p Feeling well overall. Still having tail bone pain and lower extremity swelling. Formula feeding. Lochia is light. Voiding without difficulty and passing flatus. Tolerating regular diet. Denies fever/chills, chest pain and shortness of breath. No headaches, vision changes, lightheadedness/dizziness. She complains of lower extremity swelling. No calf pain. Ambulating well ad britany. Hospital Course Hospital Course Hospital Course: Mrs Karissa Ceballos is a 35 yo at 37w1d who presented to [facility] L&D on 03/12 with complaint of increased pelvic pressure and pain that started around 1900 on 03/12. She reported feeling more wet and unsure if her water broke. Amnisure was negative. Cervical exam by RN was 5/80/-2. Repeat cervical exam 3 hours later was stretchy 6 cm/80/-2. No vaginal bleeding. Baby is very active. She has had good care. complicated by maternal obesity, AMA and tobacco use. GBS pending. She had a normal spontaneous vaginal delivery on 03/13/25 at 1103. She delivered a live female baby, Cristiane, weighing 8 lb 1 oz. APGARs 6 (1 min), 7 (5 min) EBL 100 mL. She did well . Pain controlled. Formula feeding. Light lochia. Voiding without difficulty and passing flatus. Tolerating regular diet. Denies fever/chills, chest pain and shortness of breath. No headaches, dizziness/lightheadedness or vision changes. Vital signs stable, afebrile. Heart regular rate and rhythm. Lungs clear to auscultation. Abdomen soft, nontender. She had +3 bilateral lower extremity edema. No calf pain. Ambulating well ad britany. Normal hospital course. She was discharged to home on PPD # 2 with instructions to follow-up in the office in 2 weeks or sooner if needed. Exam Data for Last 24 hours Vital signs and Labs for Last 24 Hours: Temp Pulse Resp BP Pulse Ox O2 Del Method 97.7 F 80 20 131/72 98 Room Air 03/15/25 08:29 03/15/25 08:29 03/15/25 08:29 03/15/25 08:29 03/15/25 08:29 03/15/25 08:29 I & O for Last 24 hours: Intake & Output 03/12/25 03/13/25 03/14/25 03/15/25 23:59 23:59 23:59 23:59 Intake Total 100 / 100 3201.066 / 3201.066 Output Total 1000 / 1000 Balance 100 / 100 2201.066 / 2201.066 Weight 290 lb 0.007 oz Microbiology Reports for the Last 24 Hours: Microbiology 03/12/25 20:15 Urine,Clean Catch Urine Culture - Final Multiple organisms, suggests contamination. Constitutional Constitutional: no acute distress, obese and cooperative *Routine HEENT Exam Head: Present normocephalic and atraumatic Eye: Absent conjunctivae pink ENT: Present mucous membranes moist *Routine Neck Exam Neck: Present full ROM *Routine Respiratory Exam Respiratory: Present CTA bilaterally and normal respiratory effort *Routine Cardiovascular Exam Cardiovascular: Present RRR *Routine Abdominal Exam Abdominal: Present soft; Absent tenderness or distended *Routine Rectal Exam Patient deferred: visual exam *Routine Exam Patient deferred: external exam *Routine Extremities Exam Extremities: Present edema (+3 bilateral lower extremity edema) and full ROM; Absent calf tenderness *Routine Neurological Exam Neurological: Present alert, moving all extremities and normal speech Routine Psychiatric Exam Psychiatric: Present normal affect and cooperative DS: Diagnosis Discharge Diagnosis (1) Status post vaginal delivery: Status: Acute (2) Active labor at term: Status: Acute (3) Maternal obesity affecting , antepartum: Status: Acute Code(s): O99.210 - Obesity complicating , unspecified trimester Qualifiers: Obesity type affecting : unspecified obesity Qualified Code(s): O99.210 - Obesity complicating , unspecified trimester (4) AMA (advanced maternal age) multigravida 35+: Status: Acute Code(s): O09.529 - Supervision of elderly multigravida, unspecified trimester Qualifiers: Trimester: unspecified trimester Qualified Code(s): O09.529 - Supervision of elderly multigravida, unspecified trimester (5) Tobacco use affecting , antepartum: Status: Acute Code(s): O99.330 - Smoking (tobacco) complicating , unspecified trimester (6) Rubella non-immune status, antepartum: Status: Acute Code(s): O09.899 - Supervision of other high risk pregnancies, unspecified trimester; Z28.39 - Other underimmunization status (7) Anxiety: Status: Chronic Code(s): F41.9 - Anxiety disorder, unspecified (8) Acute blood loss anemia: Status: Acute Code(s): D62 - Acute posthemorrhagic anemia Meds Home Medications and Allergies Home Medications ?Medication ?Instructions ?Recorded ?Confirmed ?Type vit no.95-ferrous 1 tab PO DAILY 10/03/24 History fumarate 28 mg-folic acid 800 mcg tablet () magnesium 200 mg tablet 200 mg PO BID 10/17/2403/12 History ferrous sulfate 325 mg (65 mg 325 mg PO DAILY 01/19/25 03/12/25 History iron) tablet (FeroSul) sertraline 25 mg tablet 25 mg PO DAILY #30 tabs 10/0 01/1903/12/25 Rx New Prescriptions to Start Prescriptions: Allergies Allergy/AdvReac Type Severity Reaction Status Date / Time nitrofurantoin Allergy Intermediate Hives Verified 03/12/25 23:11 Discharge Plan Disposition Patient Disposition: Home, Self-Care Condition: Good Discharge Order Discharge Orders: Discharge Order (Routine); Ordered 03/15/25 Ordered By: Zonia Kennedy Follow up Plan Follow up with: Zonia Kennedy DO [Staff Physician, [facility]] - 03/29/25 2:45 pm Prescriptions/Medication Reconciliation: Continued PNV no.95-ferrous fumarate-FA [] 28 mg iron- 800 mcg tablet 1 tab PO DAILY sertraline 25 mg tablet 25 mg PO DAILY Qty: 30 2RF magnesium 200 mg tablet 200 mg PO BID ferrous sulfate [FeroSul] 325 mg (65 mg iron) tablet 325 mg PO DAILY Problem Reconciliation Problems Reviewed?: Yes Patient Discharge Instructions ACTIVITY: Limited activity DIET: continue same diet and regular diet Additional Instructions: Congratulations!! Discharge: 1. Take 800 mg Ibuprofen every 8 hours as needed for pain. You can also take 500-1000 mg of Tylenol in between doses, every 6-8 hours. 2. Nothing in the vagina for 6 weeks - no intercourse, douching or tampons. No tub baths/hot tubs or swimming pools 3. Reasons to return to L&D or call On-Call doctor - fever (greater than 100.4) - heavy vaginal bleeding (soaking through 1 pad in less than 2 hours) - vaginal discharge (malodorous and/or purulent) - severe headaches not resolved by medication or rest 4. depression/blues - Normal to feel anxious/overwhelmed for first 2 weeks - Talk to your doctor if: severe anxiety, trouble bonding with baby, withdrawing from other family members, thoughts of harming yourself or others Zonia Kennedy DO [facility] [phone] Patient Instructions: Depression, Hemorrhage, DI for Labor and Delivery, Vaginal , DI for Pre-eclampsia, [facility] Post Discharge Instructions Print Language: Romanian Providers Primary Care Provider: Maris Rivas Admalyssa Provider: Zonia Kennedy Attending Provider: Zonia Kennedy
[2025-03-15] MEDS: MEASLES,MUMPS,RUBELLA VACCINE VIAL 0.5 ML SUBCUT (10:21)
--- NOTE | 2025-03-15 12:20 | EXP.ACUTE.PN ---
Subjective *Date: 03/14/25 *Time: 09:00 Interval history: PPD # 1 s/p Feeling well overall. She complains of tail bone and lower extremity swelling. Formula feeding. Lochia is appropriate. Voiding without difficulty and passing flatus. Tolerating regular diet. Denies fever/chills, chest pain and shortness of breath. No headaches, vision changes, lightheadedness/dizziness. She complains of lower extremity swelling. No calf pain. Ambulating well ad britany. Medical Exam Vital signs and Labs for Last 24 Hours: Vital Signs Temp Pulse Resp BP Pulse Ox O2 Del Method 03/15/25 08:29 97.7 F 80 20 131/72 98 Room Air I & O for Labs for Last 24 Hours: Intake & Output 03/12/25 03/13/25 03/14/25 03/15/25 23:59 23:59 23:59 23:59 Intake Total 100 / 100 3201.066 / 3201.066 Output Total 1000 / 1000 Balance 100 / 100 2201.066 / 2201.066 Weight 290 lb 0.007 oz Microbiology Reports for the Last 24 Hours: Microbiology 03/12/25 20:15 Urine,Clean Catch Urine Culture - Final Multiple organisms, suggests contamination. Head: Present atraumatic and normocephalic ENT: Present normal exam Neck: Present normal inspection and full ROM Respiratory: Present CTA bilaterally and normal respiratory effort Cardiac: Present Reg Rate and Rhythm GI: Present soft; Absent distention or tenderness Comments:: Uterine fundus firm and below umbilicus Rectal (female): Present deferred (female): Present deferred Extremities: Present full ROM and edema (3 bilateral lower extremity edema); Absent calf tenderness Neuro: Present alert, awake and moves all extremities Assessment and Plan *Assessment and plan (1) Status post vaginal delivery: Status: Acute Category: Surgical (2) Active labor at term: Status: Acute Category: Medical (3) Maternal obesity affecting , antepartum: Status: Acute Qualifiers: Obesity type affecting : unspecified obesity Qualified Code(s): O99.210 - Obesity complicating , unspecified trimester Category: Medical Code(s): O99.210 - Obesity complicating , unspecified trimester (4) AMA (advanced maternal age) multigravida 35+: Status: Acute Qualifiers: Trimester: unspecified trimester Qualified Code(s): O09.529 - Supervision of elderly multigravida, unspecified trimester Category: Medical Code(s): O09.529 - Supervision of elderly multigravida, unspecified trimester (5) Tobacco use affecting , antepartum: Status: Acute Category: Medical Code(s): O99.330 - Smoking (tobacco) complicating , unspecified trimester (6) Rubella non-immune status, antepartum: Status: Acute Category: Medical Code(s): O09.899 - Supervision of other high risk pregnancies, unspecified trimester; Z28.39 - Other underimmunization status (7) Acute blood loss anemia: Status: Acute Category: Medical Code(s): D62 - Acute posthemorrhagic anemia Plan Continue routine care Encouraged increased ambulation Heating pad for suspected bruised tailbone AM Hgb 10.4 (11.7 on admission) Plan d/c home tomorrow, PPD # 2
== END 2025-03-15 10:25 | disposition home or self-care (01) | DRG 805 ==
LOC: OBOUT 21:45 → OB 21:45
PROVIDERS: Nurse Practitioner Obstetrics & Gynecology; Admitting Provider Obstetrics & Gynecology; PCP Nurse Practitioner Family; Visit Provider Obstetrics & Gynecology
DX: O99.214 Obesity complicating childbirth (principal); O41.1230 Chorioamnionitis, third trimester, not applicable or unspecified; Z37.0 Single live birth; D62 Acute posthemorrhagic anemia; Z3A.37 37 weeks gestation of pregnancy; O99.334 Smoking (tobacco) complicating childbirth; F17.200 Nicotine dependence, unspecified, uncomplicated; O99.344 Other mental disorders complicating childbirth; F41.9 Anxiety disorder, unspecified; O90.81 Anemia of the puerperium; O70.1 Second degree perineal laceration during delivery; O69.81X0 Labor and delivery complicated by cord around neck, without compression, not applicable or unspecified; Z28.39 Other underimmunization status; Z23 Encounter for immunization; Z88.8 Allergy status to other drugs, medicaments and biological substances; Z79.899 Other long term (current) drug therapy
CPT/HCPCS: 51702; 59025; 80053; 81001; 82570; 83036; 84112; 84156; 84550; 85025; 85384; 85610; 85730; 86592; 86850; 87086; 88307; 90460; 90707; 94761; C1758; J0290; J2405; J7120; J7121